=== PATIENT | female | born 1995 | race Caucasian/White ===

== ENCOUNTER → 2017-11-30 11:40 | Outpatient (CLI) | payer OTHER, SELFPAY ==
[2017-11-30 13:58] LABS: Alanine Aminotransferase 35 U/L (12-78); Albumin Level 4.1 gm/dL (3.4-5.0); Albumin/Globulin Ratio 1.3 (1.1-1.8); Alkaline Phosphatase 80 U/L (46-116); Anion Gap 13.3 mEq/L (5-15); Aspartate Amino Transferase 21 U/L (15-37); Bilirubin,Total 0.4 mg/dL (0.2-1.0); Blood Urea Nitrogen 17 mg/dL (7-18); Calcium 8.9 mg/dL (8.5-10.1); Carbon Dioxide 27 mmol/L (21.0-32.0); Chloride 106 mmol/L (98-107); Chol/HDL Ratio 3.4 (1-3.5); Cholesterol 214 mg/dL (140-200); Creatinine,Serum 0.73 mg/dL (0.55-1.02); Estimated Glomerular Filt Rate 99 ml/min (>60); GFR (African American) 120 ML/MIN (>60); Globulin 3.1 gm/dl (1.3-3.2); Glucose 89 mg/dL (74-106); HDL Cholesterol 63 mg/dL (29-89); LDL Cholesterol 140 mg/dL (0-130); Potassium 4.3 mmoL/L (3.5-5.1); Sodium 142 mmol/L (136-145); Total Protein,Serum 7.2 gm/dL (6.4-8.2); Triglycerides 57 mg/dL (30-200); VLDL Cholesterol 11 mg/dL (0-40)
== END ==
PROVIDERS: PCP Internal Medicine Adolescent Medicine; Visit Provider Internal Medicine Adolescent Medicine
DX: Z11.1 Encounter for screening for respiratory tuberculosis (principal); Z00.00 Encounter for general adult medical examination without abnormal findings
CPT/HCPCS: 36415; 80053; 80061; 86480

== ENCOUNTER 2018-10-19 19:46 | Outpatient (CLI) | payer OTHER, SELFPAY | END 2018-10-19 20:39 | disposition home or self-care (01) | LOC: OUTP 19:48 | PROVIDERS: PCP Internal Medicine Adolescent Medicine; Visit Provider Nurse Practitioner | DX: J06.9 Acute upper respiratory infection, unspecified (principal) ==

== ENCOUNTER → 2018-11-22 19:11 | Outpatient (CLI) | payer OTHER, SELFPAY ==
[2018-11-25 08:12] LABS: QuantiFERON-TB Gold Plus Negative (Negative)
== END ==
PROVIDERS: Visit Provider Nurse Practitioner Family
DX: Z11.1 Encounter for screening for respiratory tuberculosis (principal)
CPT/HCPCS: 36415; 86480

== ENCOUNTER → 2019-01-06 10:22 | Outpatient (CLI) | payer OTHER, SELFPAY ==
[2019-01-06 10:49] LABS: Hematocrit 42.8 % (37.0-47.0); Hemoglobin 14.3 g/dL (12.2-16.2); Lymphocytes % 22.4 % (10-50); Mean Corpuscular HGB Conc 33.5 g/dL (31.8-35.4); Mean Corpuscular Hemoglobin 32.1 pg (27.0-31.2); Mean Corpuscular Volume 95.6 fl (81-99); Mean Platelet Volume 8.3 fl (7.4-10.4); Monocytes % 5.3 % (1.7-9.3); Neutrophils % 71.5 % (37.0-80.0); Platelet Count 304 K/mm3 (142-424); Red Blood Count 4.47 M/mm3 (4.20-5.40); Red Cell Distribution Width 12.5 % (11.5-17.5); White Blood Count 7.8 K/mm3 (4.8-10.8)
[2019-01-06 10:50] LABS: Basophils % 0.5 % (0.1-2.0); Eosinophils % 0.2 % (0.1-12.0); Lymphocytes # 1.8 K/mm3 (0.7-4.5); Monocytes # 0.4 K/mm3 (0.1-1.0); Neutrophils # 5.6 K/mm3 (1.8-7.8)
[2019-01-08 10:14] LABS: HIV Screen 4th Generation wRfx Non Reactive (Non Reactive); Hepatitis B Surface Antigen Negative (Negative); Hepatitis C Antibody 0.2 s/co ratio (0.0-0.9); Rapid Plasma Reagin Ab Titer Non Reactive (NonRea<1:1)
[2019-01-08 10:15] LABS: Rubella Antibodies, IgG 4.74 index (Immune >0.99)
== END ==
PROVIDERS: Visit Provider Nurse Practitioner Obstetrics & Gynecology
DX: Z34.90 Encounter for supervision of normal pregnancy, unspecified, unspecified trimester (principal)
CPT/HCPCS: 36415; 85025; 86592; 86703; 86762; 86850; 87340; 87380; G0432

== ENCOUNTER → 2019-01-12 09:00 | Outpatient (CLI) | payer BC, SELFPAY ==
--- NOTE | 2019-01-12 09:02 | US_ITS ---
US OB transvaginal HISTORY: Early OB ultrasound ITS.REASON: US OB Dates ORDERING PHYSICIAN: Enio Malone MD PATIENT AGE: 23 years COMPARISON: None FINDINGS: An intrauterine gestational sac is present with a pole with a crown-rump length of 2.75cm correlating to gestational age of 9w4d. heart tones are present with an FHR of 186 bpm's. Yolk sac is noted. The amnion and chorion have not yet fused. Adnexa: There is a small left corpus luteum cyst at 14 mm. IMPRESSION: Live intrauterine gestation at 9 weeks 4 days as described above. Estimated due date by Ultrasound is 08/13/2019
== END ==
PROVIDERS: PCP Internal Medicine Adolescent Medicine; Visit Provider Nurse Practitioner Obstetrics & Gynecology
DX: O26.841 Uterine size-date discrepancy, first trimester (principal)
CPT/HCPCS: 76817

== ENCOUNTER → 2019-03-29 09:51 | Outpatient (CLI) | payer BC, SELFPAY ==
--- NOTE | 2019-03-29 09:53 | US_ITS ---
US OB /maternal detail: INDICATION: ITS.REASON: US OB Complete ORDERING PHYSICIAN: Enio Malone MD PATIENT AGE: 24 years TECHNIQUE: ultrasound transabdominal scanning. COMPARISON: No previous relevant studies. FINDINGS: Single viable intrauterine gestation. Breech position. Placenta: Posterior placenta grade 1. There is average amount fluid. The cervix appears satisfactory. Closed and measuring 3 cm in length. Complete survey performed and was unremarkable on the submitted images as in PACS. No discrete anomalies identified on survey imaging by technologist. Active fetus. Three-vessel cord with satisfactory umbilical cord insertion. 4- chamber heart noted. Survey of brain & ventricles unremarkable. Face and neck survey unremarkable. Diaphragm and chest views unremarkable. Abdomen: Both kidneys noted and unremarkable. Stomach noted and satisfactory. Spine: Survey of the spine satisfactory with no anomalies identified nor imaged. Both arms and legs noted. Amniotic Fluid: Adequate. Maternal adnexa: No significant findings. Measurements: Average ultrasound age 20w4d. Gestational Age 20w3d. Estimated due date by ultrasound age 1008/12/2019. Estimated weight 361 grams. BPD = 20w4d OFD = 21w4d HC = 20w3d AC = 21w0d FL = 20w1d Growth Percentile= 52% Heart Rate = 153 Cerebellum = 20w1d Humerus = 21w0d HC/AC is 1.14 (1.09-1.26). CI is 74% (70-86%). FL/BPD is 68%. FL/AC is 21%. IMPRESSION: There is a single live active fetus which is in cephalic presentation with an average ultrasound age of 20 weeks and 4 days. All parameters correlate with no obvious anomalies. Please see above for detail.
== END ==
PROVIDERS: PCP Internal Medicine Adolescent Medicine; Visit Provider Nurse Practitioner Obstetrics & Gynecology
DX: Z36.0 Encounter for antenatal screening for chromosomal anomalies (principal)
CPT/HCPCS: 76811

== ENCOUNTER → 2019-05-20 10:16 | Outpatient (CLI) | payer BC, SELFPAY ==
[2019-05-20 11:01] LABS: Glucose,Fasting 90 mg/dL (60-105)
[2019-05-20 12:45] LABS: Glucose 1 Hour 117 mg/dL (74-106)
== END ==
PROVIDERS: Visit Provider Nurse Practitioner Obstetrics & Gynecology
DX: Z34.90 Encounter for supervision of normal pregnancy, unspecified, unspecified trimester (principal)
CPT/HCPCS: 36415; 82951

== ENCOUNTER → 2019-07-11 17:08 | Outpatient (CLI) | payer BC, SELFPAY | PROVIDERS: Visit Provider Nurse Practitioner Obstetrics & Gynecology | DX: Z34.90 Encounter for supervision of normal pregnancy, unspecified, unspecified trimester (principal) | CPT/HCPCS: 86403 ==

== ENCOUNTER 2019-08-10 03:25 | Inpatient (IN) ==
[2019-08-10 05:10] LABS: Microscopic, Urine URINE MICROSCOPIC (MICROSCOPIC)
[2019-08-10 05:16] LABS: Basophils % 0.2 % (0.1-2.0); Eosinophils # 0.1 K/mm3 (0.0-0.4); Eosinophils % 0.8 % (0.1-12.0); Hematocrit 39.5 % (37.0-47.0); Hemoglobin 12.3 g/dL (12.2-16.2); Lymphocytes # 2.1 K/mm3 (0.7-4.5); Lymphocytes % 25.3 % (10-50); Mean Corpuscular HGB Conc 31.3 g/dL (31.8-35.4); Mean Corpuscular Volume 102.1 fl (81-99); Mean Platelet Volume 11.3 fl (7.4-10.4); Monocytes # 0.5 K/mm3 (0.1-1.0); Monocytes % 6.4 % (1.7-9.3); Neutrophils # 5.7 K/mm3 (1.8-7.8); Neutrophils % 67.3 % (37.0-80.0); Platelet Count 245 K/mm3 (142-424); Red Blood Count 3.86 M/mm3 (4.20-5.40); White Blood Count 8.4 K/mm3 (4.8-10.8)
[2019-08-10 05:31] LABS: Appearance,Urine CLEAR (Clear); Bilirubin,Urine Negative (Negative); Blood, Urine Negative (Negative); Color,Urine YELLOW (Yellow); Glucose,Urine (UA) Negative (Negative); Ketones,Urine Negative (Negative); Leukocyte Esterase,Urine 1+ (Negative); PH,Urine 6.5 (5.0-8.5); Protein,Urine Negative (Negative); Specific Gravity, Urine 1.025 (1.005-1.030); Urobilinogen,Urine 0.2 EU/dl (0.2)
[2019-08-10 05:36] LABS: Bacteria,Urine 2+ /lpf; Mucus,Urine 1+ /lpf
[2019-08-10 05:42] LABS: Amphetamine/Metha Screen,Urine Negative ng/mL (<1000); Barbiturates Screen,Urine Negative ng/mL (<200); Benzodiazepines Screen,Urine Negative ng/mL (<200); Cannabinoid Screen,Urine Negative ng/mL (<50); Cocaine Screen,Urine Negative ng/mL (<300); Methadone Screen,Urine Negative ng/mL (<300); Opiate Screen,Urine Negative ng/mL (<300); Phencyclidine Screen,Urine Negative ng/mL (<25)
--- NOTE | 2019-08-10 07:59 | Progress Note ---
Labor Note - Subjective: Date: 08/10/19 Time: 07:10 regular contraction - Objective: NST:: Reactive Contractions:: every 4-5 minutes Cervical Dilation:: 2-3 Effacement:: 75% Station: -1 Membranes: artificially ruptured Comment:: I ruptured her membranes and there was clear fluid. - Fetus: Monitoring?: Yes monitoring type:: Internal and External Comment:: I inserted an IUPC - Assessment: Labor progressing?: Yes Cephalopelvic disproportion?: No Patient Problems: All Active Problems (This Medical Record has been edited. Action required.) (Acute) Exposure to blood (Acute) - Plan: Anesthesia for epidural?: No Continue to labor down?: Yes Plan for ?: No Continue to monitor?: Yes Start pushing?: No
--- NOTE | 2019-08-10 08:01 | History & Physical Report ---
OB - H&P: HPI Antepartum - History of Present Illness Chief complaint: Term , History of present illness: She is a 24-year-old 1 para 0 at 39+ weeks gestational age. She complains of some pressure and the baby seems quite large. As result of that we have elected to deliver her at term. - History of Present Criteria for establishing EDC:: LMP confirmed by 1st trimester US care: good care Ultrasounds: normal 1st trimester US, normal mid trimester US Obstetrical complications: none Medical complications: none [facility] History I have reviewed the patient's past medical history: Yes Medical History: Denies:: Cancer, Diabetes Mellitus Type 1, Diabetes Mellitus Type 2, MRSA *Have you ever received a pneumonia vaccine?: No *Have you received a flu vaccine this season?: No Laterality Cases: Other Surgeries: Yes: No Previous Surgery. No: Amputation: No Fractures: No - *Social History Smoking Status: Never smoker Alcohol Intake: current Alcohol Intake Frequency:: holidays/special occasions only *Occupational Status:: employed Housing: house Household Members: spouse *Travel in the last 8 weeks: None Family Hx:: Hypertension, Heart Attack, Cancer, Kidney Disease Para: 0 Review of Systems - Review of Systems Review of systems:: pertinent systems reviewed and negative unless documented below Meds Home Medications Medication Instructions Recorded Confirmed Type 1 tab PO DAILY 02/03/19 08/08/19 History vitamin,calcium,xpcauqfu-drsa-ljlii acid tablet ferrous sulfate 325 mg (65 mg 325 mg PO DAILY #30 tab 04/05/19 08/08/19 Rx iron) tablet Allergies Allergy/AdvReac Type Severity Reaction Status Date / Time No Known Allergies Allergy Verified 08/08/19 13:40 OB - H&P: Exam - Physical Exam Vital signs: Temp Pulse Resp BP Pulse Ox 98.4 F 103 H 18 126/85 99 08/10/19 04:10 08/10/19 04:10 08/10/19 04:10 08/10/19 04:10 08/10/19 04:10 - Constitutional no acute distress - Routine HEENT Exam Head: Present: normocephalic Eye: Present: EOMI, PERRL ENT: Present: mucous membranes moist - Routine Neck Exam Present: supple, full ROM - Routine Respiratory Exam Absent: accessory muscle use (good air entry bilaterally), respiratory distress, wheezes, crackles - Routine Cardiovascular Exam Present: RRR. Absent: murmur - Routine Abdominal Exam Present: soft, normoactive bowel sounds. Absent: tenderness, distended, guarding - Routine Rectal Exam Patient deferred: visual exam, digital exam - Routine Exam Patient deferred: external exam, groin exam, perineal exam - Routine Extremities Exam Present: full ROM. Absent: cyanosis, edema - Routine Skin Exam Present: intact. Absent: cyanosis - Routine Neurological Exam Present: alert, oriented X3 - Routine Psychiatric Exam Present: normal affect OB - Results - Labs Labs: Short CBC 08/10/19 Range/Units 04:45 WBC 8.4 (4.8-10.8) K/mm3 Hgb 12.3 (12.2-16.2) g/dL Hct 39.5 (37.0-47.0) % Plt Count 245 (142-424) K/mm3 Urine 08/10/19 Range/Units 04:55 Urine Color Yellow (Yellow) Urine Appearance Clear (Clear) Urine pH 6.5 (5.0-8.5) Ur Specific [place] 1.025 (1.005-1.030) Urine Protein Negative (Negative) Urine Glucose (UA) Negative (Negative) OB - A/P Antepartum (1) Normal delivery at term Current visit: Yes Status: Acute - Additional Plan Planning to breastfeed?: Yes Plan: induction Additional Information:: She is 39 and 5 weeks gestational age and has what appears to be a slightly large baby. As result of that we have elected to deliver her at term. Her cervix is favorable.
--- NOTE | 2019-08-10 10:21 | Progress Note ---
Labor Note - Subjective: Date: 08/10/19 Time: 10:20 regular contraction - Objective: NST:: Reactive Contractions:: every 2-3 minutes Cervical Dilation:: 3-4 Effacement:: 90% Station: -1 Membranes: artificially ruptured - Fetus: Monitoring?: Yes monitoring type:: Internal and External - Assessment: Labor progressing?: Yes Cephalopelvic disproportion?: No Patient Problems: All Active Problems (This Medical Record has been edited. Action required.) Normal delivery at term (Acute) (Acute) Exposure to blood (Acute) - Plan: Anesthesia for epidural?: No Continue to labor down?: Yes Plan for ?: No Continue to monitor?: Yes Start pushing?: No
--- NOTE | 2019-08-10 13:39 | Progress Note ---
Labor Note - Subjective: Date: 08/10/19 Time: 13:37 regular contraction - Objective: NST:: Reactive Contractions:: every 2-3 minutes Cervical Dilation:: 4 Effacement:: 90% Station: -1 Membranes: artificially ruptured - Fetus: Monitoring?: Yes monitoring type:: Internal and External - Assessment: Labor progressing?: Yes Cephalopelvic disproportion?: No Patient Problems: All Active Problems (This Medical Record has been edited. Action required.) Normal delivery at term (Acute) (Acute) Exposure to blood (Acute) - Plan: Anesthesia for epidural?: Yes Continue to labor down?: Yes Plan for ?: No Continue to monitor?: Yes Start pushing?: No Comment:: There is some molding of the head. She is a good 4 cm and the cervix is thinned out significantly. The head is really not come down much. We will see how she does over the next few hours.
--- NOTE | 2019-08-10 15:50 | Progress Note ---
Labor Note - Subjective: Date: 08/10/19 Time: 15:50 regular contraction - Objective: NST:: Reactive Contractions:: every 2-3 minutes Cervical Dilation:: 6 Effacement:: 100% Station: -1 Membranes: artificially ruptured - Fetus: Monitoring?: Yes monitoring type:: Internal and External - Assessment: Labor progressing?: Yes Cephalopelvic disproportion?: No Patient Problems: All Active Problems (This Medical Record has been edited. Action required.) Normal delivery at term (Acute) (Acute) Exposure to blood (Acute) - Plan: Anesthesia for epidural?: Yes Continue to labor down?: Yes Plan for ?: No Continue to monitor?: Yes Start pushing?: No
--- NOTE | 2019-08-10 17:42 | Progress Note ---
Labor Note - Subjective: Date: 08/10/19 Time: 17:40 regular contraction - Objective: NST:: Reactive Contractions:: every 2-3 minutes Cervical Dilation:: 9-10 Effacement:: 100% Station: 0 Membranes: artificially ruptured - Fetus: Monitoring?: Yes monitoring type:: Internal and External - Assessment: Labor progressing?: Yes Cephalopelvic disproportion?: No Patient Problems: All Active Problems (This Medical Record has been edited. Action required.) Normal delivery at term (Acute) (Acute) Exposure to blood (Acute) - Plan: Anesthesia for epidural?: Yes Continue to labor down?: Yes Plan for ?: No Continue to monitor?: Yes Start pushing?: No Comment:: She does has an anterior lip and she feels a lot of pressure with each contraction. We will have her bear down with each contraction. Once she brings ahead and little further we will go ahead and start pushing.
--- NOTE | 2019-08-10 19:26 | Procedure Note ---
- Delivery Note Delivery Date:: 08/10/19 Delivery Time:: 19:03 Anesthesia Type: Epidural Was labor medically induced?: Yes Induction method: per pitocin protocol Gestational age (weeks): 39 Infant delivered prior to 39 weeks?: No Infant Gender: Male at 1 minute: 8 at 5 minutes: 9 LAC or MLE?: LAC Delivery Procedure:: She is a 24-year-old 1 para 0 who was 39 and 5 weeks gestational age. She had quite a large baby so we elected to deliver her at term. She was feeling quite a lot of pressure as well. She was started on IV oxytocin had her membranes ruptured. Under labor epidural she progressed to full dilation and delivered spontaneously a liveborn male child at 7:03 PM in the evening of August 10, 2019. On deliver the head the anterior shoulder then easily delivered followed by the rest of the infant's body atraumatically. We allowed the cord to continue to pulsate for 1 minute. The oropharynx and nasopharynx were bulb suction. The cord was then doubly clamped and cut. The infant was then placed on the mother's abdomen for further care. The nurses assigned Apgars of 8 at 1 minute and 9 at 5 minutes. We then obtained cord blood as well as cord pH. The pH was 7.32. Using gentle traction on the cord and countertraction on the fundus I was able to easily deliver the placenta intact. He had a normal three-vessel cord. She had bilateral labial tears along with a first-degree vaginal tear. These were repaired with interrupted 3-0 Vicryl Rapide suture. She has O+ blood, she is rubella immune and was group A streptococcus negative. She plans to breast-feed. Her welder operator is Dr. Emerson. Estimated blood loss was approximately 500 cc. Laceration:: vaginal, labial Placental Delivery Description: Spontaneous
[2019-08-11 07:46] LABS: Hematocrit 33.3 % (37.0-47.0); Hemoglobin 10.5 g/dL (12.2-16.2)
--- NOTE | 2019-08-11 09:28 | Progress Note ---
Internal Medicine - PN: Subj *Date: 08/11/19 *Time: 09:27 Interval history: She continues to do well. She is eating and drinking and ambulating. She is feeding. Her lochia is normal. Her hemoglobin is stable. Exam Vital signs and Labs for Last 24 Hours: Temp Pulse Resp BP Pulse Ox 98.0 F 83 16 106/60 L 97 08/11/19 04:00 08/11/19 04:00 08/11/19 04:00 08/11/19 04:00 08/11/19 04:00 Laboratory Results - last 24 hr 08/10/19 19:18: Cord ABG pH 7.32 L 08/11/19 06:26: Hgb 10.5 L, Hct 33.3 L I & O for Last 24 hours: Intake & Output 08/08/19 08/09/19 08/10/19 08/11/19 11:59 11:59 11:59 11:59 Output Total 1000 / 1000 Balance -1000 / -1000 Weight 225 lb Microbiology Reports for the Last 24 Hours: Microbiology 08/10/19 04:55 Urine,Clean Catch Urine Culture - Preliminary - Constitutional no acute distress Assessment and Plan (1) Normal delivery at term Current visit: Yes Status: Acute Category: Medical Code(s): O80 - Encounter for full-term uncomplicated delivery - Assessment and plan all Dx Assessment and Plan for all problems:: She continues to do very well. We will see her back again in the morning. We will plan to send her home tomorrow.
--- NOTE | 2019-08-11 09:32 | Discharge Summary ---
General - General Admission date:: 08/10/19 Discharge date: 08/12/19 HPI HPI: She is a 24-year-old 1 now para 1 who was 39+5 weeks gestational age. She had a large baby and as result of that we elected to induce her labor at term. Hospital Course Hospital Course: She was started on IV oxytocin had her membranes ruptured. Under labor epidural she progressed to full dilation and delivered spontaneously a liveborn male child at 7:03 PM in the evening of August 10, 2019. Baby was a liveborn male child weighing 9 pounds 0 ounces and had Apgars of 8 at 1 minute and 9 at 5 minutes. pH was 7.32. She has done well and has remained afebrile with her hospitalization. She is eating and drinking and ambulating. She is breast-feeding. Her lochia is normal. She has O+ blood, she is rubella immune and was group B streptococcus negative. Her vial gauger is Dr. Emerson. She is discharged home to follow-up with me in approximately 2 weeks time. She will continue with her vitamins and iron. She will take pvsi-rqr-liheimx analgesics as needed for pain. Objective Vital signs: Temp Pulse Resp BP Pulse Ox 98.0 F 83 16 106/60 L 97 08/11/19 04:00 08/11/19 04:00 08/11/19 04:00 08/11/19 04:00 08/11/19 04:00 no acute distress Results Labs on day of discharge: Labs from last 24 hours 08/11/19 08/10/19 06:26 19:18 Hgb 10.5 L Hct 33.3 L Cord ABG pH 7.32 L Preliminary micro results at discharge 08/10/19 04:55 Urine Culture - Preliminary Urine,Clean Catch DS: Diagnosis - Discharge Diagnosis (1) Normal delivery at term Status: Acute Discharge Plan - Patient Discharge Instructions ACTIVITY: No heavy lifting DIET: continue same diet - Follow up Plan Disposition: Home, Self-Senior Living Medications: Home Medications Medication Instructions Recorded Confirmed Type 1 tab PO DAILY 02/03/19 08/10/19 History vitamin,calcium,xrgkhhpl-ljip-nzfft acid tablet Ferrous Sulfate 325 mg PO DAILY 08/10/19 08/10/19 History Prescriptions/Medication Reconciliation: Continued vitamin,calcium,mjemzdwy-ugxw-hmtch acid tablet 1 tab PO DAILY Ferrous Sulfate 325 mg PO DAILY - Problem Reconciliation Problems Reviewed?: Yes
[2019-08-12 07:57] VITALS: BP 124/76
--- NOTE | 2019-08-12 10:36 | Progress Note ---
Internal Medicine - PN: Subj *Date: 08/12/19 *Time: 10:32 Interval history: PPD #2 No new complaints Tolerating regular diet, ambulating and voiding Discharge planned for today Exam Vital signs and Labs for Last 24 Hours: Temp Pulse Resp BP Pulse Ox 98.2 F 79 20 124/76 97 08/12/19 07:56 08/12/19 07:56 08/12/19 07:56 08/12/19 07:56 08/12/19 07:56 I & O for Last 24 hours: Intake & Output 08/09/19 08/10/19 08/11/19 08/12/19 11:59 11:59 11:59 11:59 Output Total 1000 / 1000 Balance -1000 / -1000 Weight 225 lb Microbiology Reports for the Last 24 Hours: Microbiology 08/10/19 04:55 Urine,Clean Catch Urine Culture - Final Multiple organisms, suggests contamination. Narrative: CONSTITUTIONAL: no acute distress HEENT: mucous membranes moist PULMONARY: breathing unlabored without audible wheezes CV: no tachycardia or visible JVD; normal LE peripheral pulses ABD: soft, NT/ND, no guarding : fundus firm at/below umbilicus SKIN: no visible rash or lesions EXT: 1+ edema LEs NEURO: alert/oriented, no altered mental status PSYCH: appropriate mood and demeanor without visible anxiety/depression Assessment and Plan (1) Normal delivery at term Current visit: Yes Status: Acute Category: Medical Code(s): O80 - Encounter for full-term uncomplicated delivery - Assessment and plan all Dx Assessment and Plan for all problems:: Discharge home per previous plan of Dr. Malone F/U 2 wk visit
--- OUTSIDE RECORDS SUMMARY | 2019-08-23 11:16 | External Medical Summary | Continuity of Care Document ---
:1995 Author Organization [facility] Address [address] [address] [place] [address] Phone Care Team Providers Name Role Phone Faisal Attending Provider Ava Primary Care Provider Allergies, Adverse Reactions, Alerts No known allergies. Medications Medication Status Dose Units Route Sig Qty Days Start Date End Date Instructions Vit Active 1 TAB Oral Daily February 03 Calc,Iron,Foli 2018 c 10:00am Ferrous Active 325 MG Oral Daily August 8:46am Problems Active Problems Medical Problem Onset Date Status Exposure to blood Active Normal delivery at term Active Active Procedures Procedure Date Performed Status Group B Streptococcus Screen (ADRIENNE) July 11, 2019 compl eted Relevant Diagnostic Tests and/or Laboratory Data Laboratory Results Test Date/Time Result Interpretation Reference Result Perfo rming Range Comment Site Urine Color May 252018 11:32am Urine Color June 092018 11:43am Urine Color June 3:21pm Urine Color July 9:20am Urine Color July 2:50pm Urine Color July 3:21pm Urine Color July 12:09pm Urine Color August 11:06am Urine Color August 1:32pm Urine May 25 Clear Appearance 2018 11:32am Urine June 09 Clear Appearance 2018 11:43am Urine June Clear Appearance 2018 3:21pm Urine Annamarie Clear Appearance 2018 9:20am Urine Annamarie Clear Appearance 2018 2:50pm Urine Annamarie Clear Appearance 2018 3:21pm Urine Annamarie Clear Appearance 2018 12:09pm Urine October Clear Appearance 2018 11:06am Urine October Clear Appearance 2018 1:32pm Urine Glucose May 25, Negative (UA) 2018 11:32am Urine Glucose June 09, Negative (UA) 2018 11:43am Urine Glucose June Negative (UA) 2018 3:21pm Urine Glucose Annamarie Negative (UA) 2018 9:20am Urine Glucose Annamarie Negative (UA) 2018 2:50pm Urine Glucose Annamarie Negative (UA) 2018 3:21pm Urine Glucose Annamarie Negative (UA) 2018 12:09pm Urine Glucose October Negative (UA) 2018 11:06am Urine Glucose October Negative (UA) 2018 1:32pm Urine May 25, negative Bilirubin 2018 11:32am Urine June 09, negative Bilirubin 2018 11:43am Urine June negative Bilirubin 2018 3:21pm Urine Annamarie negative Bilirubin 2018 9:20am Urine Annamarie negative Bilirubin 2018 2:50pm Urine Annamarie negative Bilirubin 2018 3:21pm Urine Annamarie negative Bilirubin 2018 12:09pm Urine October negative Bilirubin 2018 11:06am Urine October negative Bilirubin 2018 1:32pm Urine Ketones May 25, Negative mg/dL 2018 11:32am Urine Ketones June 09, Negative mg/dL 2018 11:43am Urine Ketones June Negative mg/dL 2018 3:21pm Urine Ketones Annamarie Negative mg/dL 2018 9:20am Urine Ketones Annamarie Negative mg/dL 2018 2:50pm Urine Ketones Annamarie Small 15 mg/dL 2018 3:21pm Urine Ketones Annamarie Negative mg/dL 2018 12:09pm Urine Ketones October Negative mg/dL 2018 11:06am Urine Ketones October Negative mg/dL 2018 1:32pm Urine Specific May 25, 1.015 [place] 2018 11:32am Urine Protein June 09, 2018 11:43am Urine Protein June Negative 2018 3:21pm Urine Protein Annamarie Negative 2018 9:20am Urine Protein Annamarie Trace 2018 2:50pm Urine Protein July Negative 2018 3:21pm Urine Protein Annamarie Negative 2018 12:09pm Urine Protein August Negative 2018 11:06am Urine Protein August Negative 2018 1:32pm Urine Blood May 25, negative 2018 11:32am Urine pH June 8th, 8.5 2018 11:43am Urine pH [place] 7.0 2018 3:21pm Urine pH Annamarie 6.0 2018 9:20am Urine pH Annamarie 7.0 2018 2:50pm Urine pH Annamarie 7.0 2018 3:21pm Urine pH Annamarie 6.5 2018 12:09pm Urine pH October 5.5 2018 11:06am Urine pH October 6.0 2018 1:32pm Urine pH May 25, 7.0 2018 11:32am Urine Blood June 09, negative 2018 11:43am Urine Blood June negative 2018 3:21pm Urine Blood July negative 2018 9:20am Urine Blood July negative 2018 2:50pm Urine Blood Annamarie nonhemolyzed 2018 trace 3:21pm Urine Blood Annamarie negative 2018 12:09pm Urine Blood October negative 2018 11:06am Urine Blood October negative 2018 1:32pm Urine Protein May 25, 2018 11:32am Urine Specific June 09, 1.015 [place] 2018 11:43am Urine Specific [place] 1.015 [place] 2018 3:21pm Urine Specific Annamarie 1.025 [place] 2018 9:20am Urine Specific Annamarie 1.020 [place] 2018 2:50pm Urine Specific Annamarie 1.020 [place] 2018 3:21pm Urine Specific Annamarie 1.015 [place] 2018 12:09pm Urine Specific October 1.005 [place] 2018 11:06am Urine Specific October 1.010 [place] 2018 1:32pm Urine May 25, 0.2 Urobilinogen 2019 Dipstick 11:32am Urine June 09, 0.2 Urobilinogen 2019 Dipstick 11:43am Urine [place] 0.2 Urobilinogen 2018 Dipstick 3:21pm Urine Annamarie 0.2 Urobilinogen 2018 Dipstick 9:20am Urine Annamarie 0.2 Urobilinogen 2018 Dipstick 2:50pm Urine Annamarie 0.2 Urobilinogen 2018 Dipstick 3:21pm Urine Annamarie 0.2 Urobilinogen 2018 Dipstick 12:09pm Urine October 0.2 Urobilinogen 2018 Dipstick 11:06am Urine October 0.2 Urobilinogen 2018 Dipstick 1:32pm Urine Nitrate May 252018 11:32am Urine Nitrate June 092018 11:43am Urine Nitrate June Negative 2018 3:21pm Urine Nitrate July Negative 2018 9:20am Urine Nitrate Annamarie Negative 2018 2:50pm Urine Nitrate July Negative 2018 3:21pm Urine Nitrate Annamarie Negative 2018 12:09pm Urine Nitrate August Negative 2018 11:06am Urine Nitrate October Negative 2018 1:32pm Urine May 25, Trace Leukocyte 2018 Esterase 11:32am Urine June 09, Small Leukocyte 2018 Esterase 11:43am Urine June Small Leukocyte 2018 Esterase 3:21pm Urine July Trace Leukocyte 2018 Esterase 9:20am Urine Annamarie Trace Leukocyte 2018 Esterase 2:50pm Urine Annamarie Negative Leukocyte 2018 Esterase 3:21pm Urine Annamarie Trace Leukocyte 2018 Esterase 12:09pm Urine October Trace Leukocyte 2018 Esterase 11:06am Urine October Small Leukocyte 2018 Esterase 1:32pm Microbiology Results Procedure Source Result Collection Result Result Performin g Date/Time Date/Time Comment Site Group B Vaginal Negative for July [facility], [address] Streptococcus Group B 2018 Screen (ADRIENNE) Streptococcu 2:49pm 9:33[place] [address] s. Advance Directives Advance Directive Response Recorded Date/Time Does the patient have an advanced directive on No August 08, 2019 1:56pm file? Living Will No August 08, 2019 1: 56pm Does the patient have an advanced directive on No July 11, 2019 3:30pm file? Living Will No July 11, 2019 3:30pm Does the patient have an advanced directive on No July 08, 2019 9:39am file? Living Will July 08, 2019 9:39am Does the patient have an advanced directive on No July 20, 2019 3:47pm file? Living Will No July 20, 2019 3:47pm Does the patient have an advanced directive on No June 21, 2019 3:38pm file? Living Will No June 21, 2019 3: 38pm Chief Complaint and Reason for Visit Chief Complaint LABWORK Induction Reason for Visit Normal delivery at term Encounters Encounter Location(s) Arrival/Admit Date Discharge/Depart Date Provider(s) Departed [facility] Physician May 25, 2019 May 25, 2019 Enio del toro , [facility] 11:25am 12:03pm [facility] Visit Departed [facility] Physician June 09, 2019 June 09, 2019 Enio [facility] 10:47am 11:54am [facility] Visit Departed [facility] Physician June 21, 2019 June 21, 2019 Keagan [facility] 2:50pm 3:32pm [facility] F[facility]al Visit Departed [facility] Physician July 08, July 08, 2019 Enio [facility] 2018 8:56am 9:31am [facility] Visit Departed [facility] Physician July 11, July 11, 2019 Enio [facility] 2018 2:20pm 3:31pm [facility] Visit Registered [facility] Physician July 11, Enio [facility] 2018 5:08pm MD Off to [facility] Departed [facility] Physician July 20, July 20, 2019 Charles silas [facility] 2018 2:47pm 3:47pm [facility] Visit Departed [facility] Physician July 28, July 28, 2019 Baig [facility] 2018 11:26am 12:12pm [facility] Visit Departed [facility] Physician August 02, 2019 August 02, 2019 Keagan [facility] 10:58am 11:25am [facility] Visit Departed [facility] Physician August 08, 2019 August 08, 2019 Keagan [facility] 1:03pm 1:58pm [facility] Visit Registered [facility] Physician August 10, 2019 Enio maguire , [facility] 4:03am MD Sam [facility] Registered [facility] Physician August 19, 2019 Enio del toro , Inpatient Group- 10:34am Recent Diagnosis Onset Date Normal delivery at term Assessments Diagnosis Onset Date Resolution Status Normal delivery at term acute Functional Status Observation Response Date Recorded Functional status ambulatory August 08, 2019 1: 56pm Functional status ambulatory August 02, 2019 11 :27am Functional status ambulatory July 28, 2019 12:15pm Functional status ambulatory July 11, 2019 3:30pm Functional status ambulatory July 08, 2019 9:39am Functional status ambulatory July 20, 2019 3:47pm Functional status ambulatory June 21, 2019 3: 38pm Functional status ambulatory June 09, 2019 11: 45am Functional status ambulatory May 25, 2019 1:44 pm Goals Acute Goals Nursing Diagnosis: Knowledge Deficit D isease/Condition Goal(s): Education of di sease process Instruction(s): Follow provider p mary/instructions (See attached discharge education) Follow/up with primary care provider as instructed in discharge packet Mental Status No Mental Status Information Available Medical Equipment No Medical Equipment Information available Insurance Providers Guarantor Vickie Treviño Address [address] [place] [address] Contact Info. Home Phone: Payer Policy Id Coverage Id Subscriber's Subscriber Id Effective E xpiration Name Date Date Fronton [id number] [address] [id number] Access Fronton [id number] [address] [address] Self Pay Self N/A Plan of Treatment She continues to do well. We will plan to deliver her later this week. She is 39+ weeks. She is doing well. Her cervix has slightly changed. We will see her back again next week. We will see her back again next week. She continues to do well. We did group B strep today. We will see her back again next week. She continues to do well. We will see her back again in a week. She is doing well. She has an occasional contraction. We will see her back in a week. She continues to do very well. The fetus measures up with her dates. Baby is active. We will see her back again in 2 weeks. She is doing very well. We will see her back in a couple of weeks. She is doing very well. We will see her back in 2 weeks. Future Tests Future scheduled test information is unavailable Pending Tests Pending diagnostic test information is unavailable Future Visits Future appointment information is unavailable Referrals to Other Providers Reason for Referral Start Provider Provider Contact Provider Address Referral Date Information Referral to [facility] August [address] [facility] Future Procedures Future procedure information is unavailable Future Medications Future medication information is unavailable Patient Instructions Diet Diet Diet Diet Depression Hemorrhage DI for Depression [facility] Post Discharge Instructions Social History Assigned Sex Female Vital Signs Vital Reading Result Reference Range Collection Date/ Time Height 172.72 cm May 25, 2019 11:40am Weight 91.79 kg May 25, 2019 11:40am Heart Rate 74 /min 60-90 May 25, 2019 11:40am BP Systolic 118 mm[Hg] 110-140 May 25, 2019 11:40am BP Diastolic 60 mm[Hg] 60-90 May 25, 2019 11:40am BMI (Body Mass Index) 30.7 kg/m2 May 25, 2019 11:40am Height 172.72 cm June 09, 2019 11:31am Weight 93.44 kg June 09, 2019 11:31am BP Systolic 128 mm[Hg] 110-140 June 09, 2019 11:31am BP Diastolic 62 mm[Hg] 60-90 June 09, 2019 11:31am BMI (Body Mass Index) 31.3 kg/m2 June 11:31am Height 172.72 cm June 21 9 3:09pm Weight 95.70 kg June 21 9 3:09pm BP Systolic 130 mm[Hg] 110-140 June 21 9 3:09pm BP Diastolic 80 mm[Hg] 60-90 June 21 9 3:09pm BMI (Body Mass Index) 32.1 kg/m2 June 3:09pm Height 172.72 cm July 08 019 8:59am Weight 97.12 kg July 08 019 8:59am BP Systolic 122 mm[Hg] 110-140 July 08 019 8:59am BP Diastolic 82 mm[Hg] 60-90 July 08 019 8:59am BMI (Body Mass Index) 32.5 kg/m2 July 08, 2019 8:59am Height 172.72 cm July 11 019 2:52pm Height 172.72 cm July 20, 2019 3:23pm Weight 98.88 kg July 20, 2019 3:23pm BP Systolic 130 mm[Hg] 110-140 July 20, 2019 3:23pm BP Diastolic 80 mm[Hg] 60-90 July 20, 2019 3:23pm BMI (Body Mass Index) 33.1 kg/m2 July 20, 2019 3:23pm Height 172.72 cm July 28, 2019 11:46am Weight 99.33 kg July 28, 2019 11:46am BP Systolic 110 mm[Hg] 110-140 July 28, 2019 11:46am BP Diastolic 72 mm[Hg] 60-90 July 28, 2019 11:46am BMI (Body Mass Index) 33.3 kg/m2 July 28, 2019 11:46am Height 172.72 cm August 02 201 9 11:14am Weight 101.37 kg August 02 11:14am Body Temperature 98 [degF] 97.6-99.6 August 02 11:14am BP Systolic 134 mm[Hg] 110-140 August 02 201 9 11:14am BP Diastolic 72 mm[Hg] 60-90 August 02 9 11:14am BMI (Body Mass Index) 34.0 kg/m2 August 11:14am Height 172.72 cm August 08 201 9 1:39pm Weight 102.28 kg August 08 9 1:39pm BP Systolic 122 mm[Hg] 110-140 August 08 9 1:39pm BP Diastolic 80 mm[Hg] 60-90 August 08 9 1:39pm BMI (Body Mass Index) 34.2 kg/m2 August 1:39pm Height 172.72 cm August 10 9 4:10am Weight 102.05 kg August 10 4:10am Body Temperature 98.2 [degF] 97.6-99.6 August 12, 019 7:56am Heart Rate 79 /min -August 12 7:56am Respiratory rate 20 /min -August 12, 2 019 7:56am Oxygen saturation by Pulse 97 % 95-100 2018 7:56am oximetry BP Systolic 124 mm[Hg] 110-140 August 12 7:56am BP Diastolic 76 mm[Hg] 60-90 August 12 7:56am BMI (Body Mass Index) 34.2 kg/m2 August 4:10am
== END 2019-08-12 12:32 | disposition home or self-care (01) | DRG 807 ==
LOC: OB 04:03
PROVIDERS: ADMIT Nurse Practitioner Obstetrics & Gynecology; ATTEND Nurse Practitioner Obstetrics & Gynecology
CPT/HCPCS: 59025; 80305; 81001; 82800; 85014; 85018; 85025; 86850; 87086; C1758; J0595

== ENCOUNTER → 2020-08-22 10:27 | Outpatient (CLI) | payer BC, SELFPAY ==
[2020-08-22 10:58] LABS: Basophils % 0.6 % (0.1-2.0); Eosinophils % 0.6 % (0.1-12.0); Hematocrit 47.9 % (37.0-47.0); Hemoglobin 14.9 g/dL (12.2-16.2); Lymphocytes # 2.4 K/mm3 (0.7-4.5); Lymphocytes % 38.8 % (10-50); Mean Corpuscular HGB Conc 31.2 g/dL (31.8-35.4); Mean Corpuscular Hemoglobin 30.9 pg (27.0-31.2); Mean Platelet Volume 8.1 fl (7.4-10.4); Monocytes # 0.3 K/mm3 (0.1-1.0); Monocytes % 5.3 % (1.7-9.3); Neutrophils # 3.4 K/mm3 (1.8-7.8); Neutrophils % 54.7 % (37.0-80.0); Platelet Count 340 K/mm3 (142-424); Red Blood Count 4.83 M/mm3 (4.20-5.40); Red Cell Distribution Width 12.4 % (11.5-17.5); White Blood Count 6.3 K/mm3 (4.8-10.8)
[2020-08-23 11:13] LABS: HIV Screen 4th Generation wRfx Non Reactive (Non Reactive); Hepatitis B Surface Antigen Negative (Negative); Hepatitis C Antibody <0.1 s/co ratio (0.0-0.9); Rubella Antibodies, IgG 5.82 index (Immune >0.99)
[2020-08-23 12:16] LABS: Rapid Plasma Reagin Ab Titer Non Reactive (NonRea<1:1)
== END ==
PROVIDERS: Visit Provider Nurse Practitioner Obstetrics & Gynecology
DX: Z34.90 Encounter for supervision of normal pregnancy, unspecified, unspecified trimester (principal)
CPT/HCPCS: 85025; 86592; 86703; 86762; 86850; 87340; 87380; G0432

== ENCOUNTER → 2020-08-28 12:50 | Outpatient (CLI) | payer BC, SELFPAY ==
--- NOTE | 2020-08-28 12:55 | US_ITS ---
PROCEDURE: US OB TRANSVAGINAL CLINICAL INDICATION: Confirm viability-spotting in early COMPARISON: US OBFEMAT US OB /maternal detail from 03/29/2019 FINDINGS: An intrauterine gestational sac is present with a pole with a crown-rump length of 0.33cm correlating to gestational age of 6weeks. heart tones are present with an FHR of . Yolk sac is noted. Heart tones are not identified on today's exam. May be too early to see heart tones. Follow-up is suggested. Unremarkable adnexa. IMPRESSION: There is an intrauterine gestation present with a crown-rump length 3.3 mm correlating to gestational age of 6 weeks 0 days. Heart tones however are not identified. Cannot confirm viability. Recommend follow-up exam in 1 week as well as correlation beta HCG. Dictated by: Anil Isaac MD 08/28/2020 17:18 Anil Isaac MD in [facility] 08/28/2020 17:18
== END ==
PROVIDERS: PCP Internal Medicine Adolescent Medicine; Visit Provider Nurse Practitioner Obstetrics & Gynecology
DX: O26.859 Spotting complicating pregnancy, unspecified trimester (principal)
CPT/HCPCS: 76817

== ENCOUNTER → 2020-08-28 13:28 | Outpatient (CLI) | payer BC, SELFPAY ==
[2020-08-28 15:12] LABS: HCG,Quantitative 17356 mIU/ml (0-5.42)
== END ==
PROVIDERS: Visit Provider Nurse Practitioner Obstetrics & Gynecology
DX: O20.9 Hemorrhage in early pregnancy, unspecified (principal); Z34.90 Encounter for supervision of normal pregnancy, unspecified, unspecified trimester
CPT/HCPCS: 36415; 84702

== ENCOUNTER → 2020-08-30 13:51 | Outpatient (CLI) | payer BC, SELFPAY ==
[2020-08-30 15:41] LABS: HCG,Quantitative 15083 mIU/ml (0-5.42)
== END ==
PROVIDERS: Visit Provider Nurse Practitioner Obstetrics & Gynecology
DX: Z34.90 Encounter for supervision of normal pregnancy, unspecified, unspecified trimester (principal)
CPT/HCPCS: 36415; 84702

== ENCOUNTER → 2020-12-20 19:57 | Outpatient (CLI) | payer BC, SELFPAY | PROVIDERS: PCP Internal Medicine Adolescent Medicine; Visit Provider Nurse Practitioner Family | DX: Z20.822 Contact with and (suspected) exposure to COVID-19 (principal) | CPT/HCPCS: U0003 ==

== ENCOUNTER → 2021-05-28 17:02 | Outpatient (CLI) | payer BC, SELFPAY ==
[2021-05-28 18:05] LABS: Basophils % 0.4 % (0.1-2.0); Eosinophils # 0.1 K/mm3 (0.0-0.4); Eosinophils % 0.6 % (0.1-12.0); Hemoglobin 13.6 g/dL (12.2-16.2); Lymphocytes # 2.8 K/mm3 (0.7-4.5); Lymphocytes % 29.3 % (10-50); Mean Corpuscular HGB Conc 33.1 g/dL (31.8-35.4); Mean Corpuscular Hemoglobin 30.9 pg (27.0-31.2); Mean Corpuscular Volume 93.3 fl (81-99); Mean Platelet Volume 8.9 fl (7.4-10.4); Monocytes # 0.6 K/mm3 (0.1-1.0); Monocytes % 6.2 % (1.7-9.3); Neutrophils % 63.5 % (37.0-80.0); Platelet Count 303 K/mm3 (142-424); Red Blood Count 4.39 M/mm3 (4.20-5.40); Red Cell Distribution Width 12.9 % (11.5-17.5); White Blood Count 9.5 K/mm3 (4.8-10.8)
[2021-05-30 04:03] LABS: HIV Screen 4th Generation wRfx Non Reactive (Non Reactive)
[2021-05-30 08:34] LABS: HSV 1 IgG, Type Spec 1.26 index (0.00-0.90); HSV 2 IgG, Type Spec <0.91 index (0.00-0.90); Rubella Antibodies, IgG 6.84 index (Immune >0.99)
[2021-05-30 09:39] LABS: Hepatitis B Surface Antigen Negative (Negative); Hepatitis C Antibody <0.1 s/co ratio (0.0-0.9)
[2021-05-30 13:44] LABS: Rapid Plasma Reagin Ab Titer Non Reactive (NonRea<1:1)
== END ==
PROVIDERS: Visit Provider Nurse Practitioner Obstetrics & Gynecology
DX: Z34.90 Encounter for supervision of normal pregnancy, unspecified, unspecified trimester (principal)
CPT/HCPCS: 85025; 86592; 86695; 86703; 86762; 86790; 86850; 87340; 87380; G0432

== ENCOUNTER → 2021-06-06 08:09 | Outpatient (CLI) | payer BC, SELFPAY ==
--- NOTE | 2021-06-06 08:09 | US_ITS ---
PROCEDURE: US OB <= 14 WEEKS FETUS CLINICAL INDICATION: for dates Ob ultrasound for dates COMPARISON: US US OB TRANSVAGINAL from 08/28/2020 FINDINGS: An intrauterine gestational sac is present with a pole with a crown-rump length of 1.98cm correlating to gestational age of 8weeks 4days. heart tones are present with an FHR of 160bpm. Yolk sac is noted. Small right corpus luteum at 8 mm IMPRESSION: Live IUP at 8 weeks 4 days. Estimated due date by Ultrasound is 01/12/2022 Dictated by: Anil Isaac MD 06/06/2021 13:58 Anil Isaac MD in [facility] 06/06/2021 13:58
== END ==
PROVIDERS: PCP Internal Medicine Adolescent Medicine; Visit Provider Nurse Practitioner Obstetrics & Gynecology
DX: Z34.90 Encounter for supervision of normal pregnancy, unspecified, unspecified trimester (principal)
CPT/HCPCS: 76801

== ENCOUNTER → 2021-08-26 12:43 | Outpatient (CLI) | payer BC, SELFPAY ==
--- NOTE | 2021-08-26 12:43 | US_ITS ---
PROCEDURE INFORMATION: Exam: US After First Trimester, Transabdominal Exam date and time: 08/26/2021 12:43 PM Age: 26 years old Clinical indication: Screening exam; Routine US, uterus; Patient HX: Anatomy ultrasound; Additional info: US ob complete-20wk anatomy scan TECHNIQUE: Imaging protocol: Real-time transabdominal obstetrical ultrasound of the maternal pelvis and a second or third trimester with image documentation. COMPARISON: US OB <= 14 WEEKS FETUS 06/06/2021 8:18 AM FINDINGS: Gestation: Single intrauterine heart rate: Heart rate 147 bpm presentation: Cephalic presentation Placenta: Anterior placenta grade 1 Amniotic fluid: Amniotic fluid is normal for gestational age. ANATOMY: midline falx: Normal falx cerebellum: Normal cerebellum. lateral ventricles: Normal cisterna magna: Normal cisterna magna nuchal fold: Nuchal fold 1.79 mm. Normal nuchal fold heart four-chamber view, heart size and position: Normal four-chamber heart. Normal right ventricular and left ventricular outflow tract diaphragm: Normal diaphragm kidneys: Normal kidneys stomach: Normal stomach urinary bladder: Normal bladder spine: Normal spine Umbilical cord insertion site into the abdomen: Normal cord insertion Umbilical cord vessel number: Normal 3 vessel cord arms and hands: Normal legs and feet: Normal BIOMETRY: Estimated due date (AUA): CHARLIE January 10.. Gestational age (AUA): Gestational age by ultrasound 20 weeks 3 days.. Estimated weight: Estimated weight 356 g 64 percentile.. Estimated weight percentile: Not calculated Biparietal diameter: BPD 20 weeks 4 days 64% Head circumference: Head circumference 19 weeks 6 days 27% Abdominal circumference: Abdominal circumference 20 weeks 4 days 55% Femur length: Femur length 20 weeks 5 days 60% MATERNAL: Uterus: Unremarkable. Cervix: Cervix measures 4.5 cm Right adnexa: Ovary is obscured by overlying bowel gas. Left adnexa: Ovary is obscured by overlying bowel gas. IMPRESSION: 1. Gestational age by ultrasound 20 weeks 3 days.. 2. CHARLIE January 10.. 3. Estimated weight 356 g 64 percentile..
== END ==
PROVIDERS: PCP Internal Medicine Adolescent Medicine; Visit Provider Nurse Practitioner Obstetrics & Gynecology
DX: Z36.0 Encounter for antenatal screening for chromosomal anomalies (principal)
CPT/HCPCS: 76811

== ENCOUNTER → 2021-10-14 09:19 | Outpatient (CLI) | payer BC, SELFPAY ==
[2021-10-14 10:04] LABS: Glucose,Fasting 101 mg/dl (74-100)
[2021-10-14 12:07] LABS: Glucose 1 Hour 123 mg/dL (74-100)
== END ==
PROVIDERS: Visit Provider Nurse Practitioner Obstetrics & Gynecology
DX: Z34.90 Encounter for supervision of normal pregnancy, unspecified, unspecified trimester (principal)
CPT/HCPCS: 36415; 82951

== ENCOUNTER → 2021-11-13 18:57 | Outpatient (CLI) | payer BC, SELFPAY ==
--- NOTE | 2021-11-13 19:14 | ECG_ITS ---
APPROVED REPORT Exam: Resting ECG HR:93 bpm ECG Measurements Heart Rate 93 AXES GA 156 P 65 QRSd 76 QRS 83 QT 356 T 28 QTc 442 Conclusion Normal sinus rhythm with sinus arrhythmia Normal ECG Electronically signed by : Mo Escalante MD 11/14/2021 13:43:57
== END ==
PROVIDERS: PCP Internal Medicine Adolescent Medicine; Visit Provider Nurse Practitioner Obstetrics & Gynecology
DX: Z34.90 Encounter for supervision of normal pregnancy, unspecified, unspecified trimester (principal); R00.0 Tachycardia, unspecified
CPT/HCPCS: 93005

== ENCOUNTER → 2021-11-21 11:07 | Outpatient (CLI) | payer BC, SELFPAY ==
[2021-11-21 11:23] LABS: Basophils # 0.1 K/mm3 (0-0.2); Basophils % 1.2 % (0.1-2.0); Eosinophils % 0.5 % (0.1-12.0); Hematocrit 42.3 % (37.0-47.0); Hemoglobin 13.4 g/dL (12.2-16.2); Lymphocytes # 1.5 K/mm3 (0.7-4.5); Lymphocytes % 17.6 % (10-50); Mean Corpuscular HGB Conc 31.6 g/dL (31.8-35.4); Mean Corpuscular Hemoglobin 31.9 pg (27.0-31.2); Mean Corpuscular Volume 100.8 fl (81-99); Mean Platelet Volume 10.2 fl (7.4-10.4); Monocytes # 0.5 K/mm3 (0.1-1.0); Monocytes % 5.7 % (1.7-9.3); Neutrophils # 6.5 K/mm3 (1.8-7.8); Neutrophils % 75.1 % (37.0-80.0); Platelet Count 285 K/mm3 (142-424); Red Blood Count 4.19 M/mm3 (4.20-5.40); White Blood Count 8.7 K/mm3 (4.8-10.8)
[2021-11-21 12:20] LABS: Chloride 104 mmol/L (98-107)
[2021-11-21 12:21] LABS: Potassium 4.1 mmoL/L (3.5-5.1); Sodium 137 mmol/L (136-145)
[2021-11-21 12:24] LABS: Anion Gap 11.1 mEq/L (5-15); Blood Urea Nitrogen 9 mg/dl (7-17); Calcium 8.8 mg/dl (8.4-10.2); Carbon Dioxide 26 mmol/L (22.0-30.0); Estimated Glomerular Filt Rate 120 ml/min (>60); GFR (African American) 145 ML/MIN (>60); Glucose 102 mg/dl (74-100)
[2021-11-21 12:41] LABS: Triiodothryronine (T3) Uptake 20 % (23.5-40.5)
[2021-11-21 12:42] LABS: Free Thyroxine Index 2.3 ug/dL (5.93-13.13); T4 (Thyroxine) 11.3 ug/dl (5.53-11.0)
[2021-11-21 12:55] LABS: Thyroid Stimulating Hormone 1.19 uIU/mL (0.465-4.68)
== END ==
PROVIDERS: PCP Internal Medicine Adolescent Medicine; Visit Provider Physician Assistant
DX: R00.0 Tachycardia, unspecified (principal); R00.2 Palpitations; Z34.90 Encounter for supervision of normal pregnancy, unspecified, unspecified trimester; I63.9 Cerebral infarction, unspecified
CPT/HCPCS: 36415; 80048; 84436; 84443; 84479; 85025

== ENCOUNTER → 2021-12-03 12:46 | Outpatient (CLI) | payer BC, SELFPAY ==
--- NOTE | 2021-12-03 12:50 | CA_ITS ---
APPROVED REPORT EXAM: Comprehensive 2D, Doppler, and color-flow Echocardiogram Manager Regional: Flor Currie RVT Ht: 5 ft 8 in Wt: 211lbs BSA: 2.09 BP: 113/71 mmHg Indications: PALPS,TACHYCARDIA,34 WKS PREG 2D Dimensions LVOT 2.07 cm (M/F) 1.5-2.5 LA Volume 34.80 mL LA Volume Index 16.65 mL/m2 (M/F) 16-34 M-Mode Dimensions RVDd 2.41 cm (0.9-2.6) LA Diam 2.88 cm (1.9-4.0) LVDd 3.37 cm (3.5-5.7) Ao Diam 2.79 cm (2.0-3.7) LVDs 2.08 cm (3.5-5.7) IVSd 0.96 cm (0.6-1.1) PWd 1.19 cm (0.6-1.1) EF (Teich) 69.60% FS 38.30% EDV (Teich) 46.40 mL TAPSE 1.98 (<1.7) ESV (Teich) 14.10 mL LV Diastology E Decel Time 150.00 (160-240 msec) E/A Ratio 2.0 MED E' 8.00 (< 7 cm/sec) E'/MED E' Ratio 13.65 (>14) LAT E' 15.10 (<10 cm/sec) E/LAT E' Ratio 7.23 (>14) Mitral Valve MV E Max Gallo. 109.00 (40-130 cm/s) MV A Velocity 55.00 (40-130 cm/s) E/A Ratio 1.99 MV Decel. Time 150.00 (160-240 ms) MV PHT 44.00 ms Pulmonary Valve PV Peak Velocity 73.00 (50-150 cm/s) Left Ventricle Left atrium is normal size, left ventricle is normal size, there is no concentric left ventricular hypertrophy, visually estimated ejection fraction 55% with no regional wall motion abnormality, diastolic parameters are within normal range. Right Ventricle Right atrium and right ventricle are normal size and contractility. Aortic Valve Aortic valve is grossly normal, there is no aortic stenosis or aortic insufficiency. Mitral Valve Mitral valve grossly normal, there is trace mitral regurgitation. Tricuspid Valve Tricuspid valve grossly normal, there is trace tricuspid regurgitation, tricuspid regurgitation jet velocity is inadequate for calculation of the right ventricular systolic pressure. Pulmonic Valve Pulmonic valve is poorly visualized. Great Vessels Aortic root is normal size. Pericardium No significant pericardial effusion. Inferior vena cava is normal size with normal inspiratory collapse. Conclusion 1. Normal left ventricular size, preserved left ventricular systolic function, visually estimated ejection fraction 55% with no regional wall motion abnormality, diastolic parameters are within normal range. 2. Trace mitral and tricuspid regurgitation. 3. No significant pericardial effusion noted. 4. Inferior vena cava is normal size with normal inspiratory collapse. Electronically signed by : Kishan Morris MD 12/03/2021 19:23:04
== END ==
PROVIDERS: PCP Internal Medicine Adolescent Medicine; Visit Provider Physician Assistant
DX: R00.2 Palpitations (principal); R00.0 Tachycardia, unspecified; Z3A.32 32 weeks gestation of pregnancy
CPT/HCPCS: 93306

== ENCOUNTER → 2021-12-09 10:09 | Outpatient (CLI) | payer BC, SELFPAY | PROVIDERS: Visit Provider Nurse Practitioner Obstetrics & Gynecology | DX: Z34.90 Encounter for supervision of normal pregnancy, unspecified, unspecified trimester (principal) | CPT/HCPCS: 86403 ==

== ENCOUNTER 2022-01-14 05:10 | Inpatient (IN) | payer BC, SELFPAY ==
[2022-01-14 05:13] VITALS: BP 114/59; PULSE 89; RESP 17; TEMP 36.7; O2SAT 99
[2022-01-14 05:14] VITALS: BMI 32.8
[2022-01-14 06:12] LABS: Coronavirus 19, PCR Not Detected (NotDetected); Influenza A, PCR Not Detected (NotDetected); Influenza B, PCR Not Detected (NotDetected); Microscopic, Urine URINE MICROSCOPIC (MICROSCOPIC)
[2022-01-14 06:21] VITALS: BP 144/78; PULSE 106; RESP 18; TEMP 36.6; O2SAT 97; BMI 32.8
[2022-01-14 06:26] LABS: Appearance,Urine SL CLOUDY (Clear); Bilirubin,Urine Negative (Negative); Blood, Urine Negative (Negative); Color,Urine YELLOW (Yellow); Glucose,Urine (UA) Negative (Negative); Ketones,Urine Negative (Negative); Leukocyte Esterase,Urine 2+ (Negative); Nitrate,Urine Negative (Negative); Protein,Urine Negative (Negative); Urobilinogen,Urine 0.2 EU/dl (0.2)
[2022-01-14 06:27] LABS: Basophils # 0.1 K/mm3 (0-0.2); Basophils % 0.7 % (0.1-2.0); Eosinophils # 0.1 K/mm3 (0.0-0.4); Hematocrit 38.1 % (37.0-47.0); Hemoglobin 12.2 g/dL (12.2-16.2); Lymphocytes # 2.7 K/mm3 (0.7-4.5); Lymphocytes % 31.4 % (10-50); Mean Corpuscular HGB Conc 31.9 g/dL (31.8-35.4); Mean Corpuscular Hemoglobin 31.8 pg (27.0-31.2); Mean Corpuscular Volume 99.7 fl (81-99); Mean Platelet Volume 12.9 fl (7.4-10.4); Monocytes # 0.5 K/mm3 (0.1-1.0); Monocytes % 6.1 % (1.7-9.3); Neutrophils # 5.2 K/mm3 (1.8-7.8); Neutrophils % 60.9 % (37.0-80.0); Platelet Count 251 K/mm3 (142-424); Red Blood Count 3.82 M/mm3 (4.20-5.40); Red Cell Distribution Width 13.6 % (11.5-17.5); White Blood Count 8.5 K/mm3 (4.8-10.8)
[2022-01-14 06:37] LABS: Bacteria,Urine 2+ /lpf
[2022-01-14 08:39] LABS: Benzodiazepines Screen,Urine Negative ng/ml (<200)
[2022-01-14 08:40] LABS: Amphetamine/Metha Screen,Urine Negative ng/ml (<1000); Barbiturates Screen,Urine Negative ng/ml (<200)
[2022-01-14 08:41] LABS: Methadone Screen,Urine Negative ng/ml (<300)
[2022-01-14 08:42] LABS: Cannabinoid Screen,Urine Negative ng/ml (<50); Cocaine Screen,Urine Negative ng/ml (<300)
[2022-01-14 08:43] LABS: Opiate Screen,Urine Negative ng/ml (<300); Phencyclidine Screen,Urine Negative ng/ml (<25)
--- NOTE | 2022-01-14 09:23 | HMH.LABNOT ---
Labor Note - Subjective: Date: 01/14/22 Time: 09:05 regular contraction - Objective: Contractions:: every 4-5 minutes Cervical Dilation:: 2-3 Effacement:: 50% Station: -2 Membranes: artificially ruptured Comment:: I ruptured her membranes and there was thin meconium - Fetus: Monitoring?: Yes monitoring type:: Internal and External Comment:: I inserted an IUPC - Assessment: Labor progressing?: Yes Cephalopelvic disproportion?: No Patient Problems: All Active Problems (This Medical Record has been edited. Action required.) Tachycardia (Acute) Palpitations (Acute) (Acute) - Plan: Anesthesia for epidural?: Yes Continue to labor down?: Yes Plan for ?: No Continue to monitor?: Yes Start pushing?: No
--- NOTE | 2022-01-14 09:24 | HMH.OBAPHP ---
OB - H&P: HPI Antepartum - History of Present Illness Chief complaint: Oligohydramnios, postterm History of present illness: She is a 26-year-old 3 para 1 aborta 1 who is 40 and 2 weeks gestational age. She was seen in my office yesterday and had low amniotic fluid. The amniotic fluid index was between 5 and 6. As result of that we have elected to deliver her postterm. - History of Present Criteria for establishing EDC:: LMP confirmed by 1st trimester US care: good care Ultrasounds: normal 1st trimester US, normal mid trimester US Obstetrical complications: other Medical complications: none - Labs Blood type: O (+) positive Rubella: immune RPR/VDRL: nonreactive GBS status: negative HBsAG: negative [facility] History I have reviewed the patient's past medical history: Yes Medical History: Denies:: Cancer, Diabetes Mellitus Type 1, Diabetes Mellitus Type 2, MRSA *Have you ever received a pneumonia vaccine?: No *Have you received a flu vaccine this season?: Yes Laterality Cases: Bilateral: Tonsillectomy Other Surgeries: Yes: No Previous Surgery. No: Amputation: No Fractures: No - *Social History Smoking Status: Never smoker Alcohol Intake: current Alcohol Intake Frequency:: holidays/special occasions only Substance Use Type: denies use *Occupational Status:: unemployed Housing: house Household Members: spouse *Travel in the last 8 weeks: None Family Hx:: Hypertension, Heart Attack, Cancer, Kidney Disease Para: 1 Review of Systems - Review of Systems Review of systems:: pertinent systems reviewed and negative unless documented below Meds Home Medications Medication Instructions Recorded Confirmed Type prenat.vits,lexis,ztu-hvuh-fejil 1 tab PO DAILY 02/03/19 01/14/22 History Ondansetron [Zofran 4mg ODT] 4 mg PO Q6H 01/14/22 01/14/22 History Allergies Allergy/AdvReac Type Severity Reaction Status Date / Time No Known Allergies Allergy Verified 01/13/22 08:46 OB - H&P: Exam - Physical Exam Vital signs: Temp Pulse Resp BP Pulse Ox 97.9 F 106 H 18 144/78 H 97 01/14/22 06:21 01/14/22 06:21 01/14/22 06:21 01/14/22 06:21 01/14/22 06:21 - Constitutional no acute distress - Routine HEENT Exam Head: Present: normocephalic Eye: Present: EOMI, PERRL ENT: Present: mucous membranes moist - Routine Neck Exam Present: supple, full ROM - Routine Respiratory Exam Absent: accessory muscle use (good air entry bilaterally), respiratory distress, wheezes, crackles - Routine Cardiovascular Exam Present: RRR. Absent: murmur - Routine Abdominal Exam Present: soft, normoactive bowel sounds. Absent: tenderness, distended, guarding - Routine Rectal Exam Patient deferred: visual exam, digital exam - Routine Exam Patient deferred: external exam, groin exam, perineal exam - Routine Extremities Exam Present: full ROM. Absent: cyanosis, edema - Routine Skin Exam Present: intact. Absent: cyanosis - Routine Neurological Exam Present: alert, oriented X3 - Routine Psychiatric Exam Present: normal affect OB - Results - Labs Labs: Short CBC 01/14/22 Range/Units 05:55 WBC 8.5 (4.8-10.8) K/mm3 Hgb 12.2 (12.2-16.2) g/dL Hct 38.1 (37.0-47.0) % Plt Count 251 (142-424) K/mm3 Urine 01/14/22 Range/Units 05:55 Urine Color Yellow (Yellow) Urine Appearance Sl cloudy (Clear) Urine pH 6.0 (5.0-8.5) Ur Specific Kersey 1.020 (1.005-1.030) Urine Protein Negative (Negative) Urine Glucose (UA) Negative (Negative) OB - A/P Antepartum (1) Post-term Status: Acute (2) Oligohydramnios antepartum Status: Acute - Additional Plan Planning to breastfeed?: Yes Plan: induction Additional Information:: She is 2 days post dates and ultrasound showed that she had oligohydramnios. As result of that working to deliver her today.
--- NOTE | 2022-01-14 10:47 | HMH.LABNOT ---
Labor Note - Subjective: Date: 01/14/22 Time: 10:47 regular contraction - Objective: NST:: Reactive Contractions:: every 2-3 minutes Cervical Dilation:: 4-5 Effacement:: 90% Station: -1 Membranes: artificially ruptured - Fetus: Monitoring?: Yes monitoring type:: Internal Comment:: I applied a scalp clip. - Assessment: Labor progressing?: Yes Cephalopelvic disproportion?: No Patient Problems: All Active Problems (This Medical Record has been edited. Action required.) Post-term (Acute) Oligohydramnios antepartum (Acute) Tachycardia (Acute) Palpitations (Acute) (Acute) - Plan: Anesthesia for epidural?: Yes Continue to labor down?: Yes Plan for ?: No Continue to monitor?: Yes Start pushing?: No Comment:: She is progressing well. The baby's head has come down. There has been no other episodes of thin meconium.
[2022-01-14 12:00] VITALS: BP 118/63; PULSE 94; RESP 18; TEMP 37.1; O2SAT 99
--- NOTE | 2022-01-14 12:19 | HMH.ANESCL ---
[facility] Anesthesia Checklist - Patient Identification Patient Identification: Arm Band - Structural Data Admitted From: Inpatient Planned Operative Procedure/s: labor epidural Consent for Planned Operative Procedure(s) Verified: Yes Verified Documents: Surgical Consent, History and Physical - NPO Status Verified Time NPO: 00:00 - Additional verifications Anesthesia Reactions: No - Airway Assessment C-Spine Mobility Assessed: Yes TMJ Mobility Assessed: Yes Dentition: Good Dentition - Neurological Assessment Level of Consciousness: Awake, Alert - Anesthesia Plan Anesthesia Risk discussed: Yes Anesthesia Plan: Verified ASA Class: II Anesthesia Type: Epidural [facility] History I have reviewed the patient's past medical history: Yes Medical History: Denies:: Cancer, Diabetes Mellitus Type 1, Diabetes Mellitus Type 2, MRSA *Have you ever received a pneumonia vaccine?: No *Have you received a flu vaccine this season?: Yes Anesthesia experience/problems:: nac Laterality Cases: Bilateral: Tonsillectomy Other Surgeries: Yes: No Previous Surgery. No: Amputation: No Fractures: No - *Social History Smoking Status: Never smoker Alcohol Intake: current Alcohol Intake Frequency:: holidays/special occasions only Substance Use Type: denies use *Occupational Status:: unemployed Housing: house Household Members: spouse *Travel in the last 8 weeks: None Family Hx:: Hypertension, Heart Attack, Cancer, Kidney Disease Para: 1
--- NOTE | 2022-01-14 12:52 | HMH.LABNOT ---
Labor Note - Subjective: Date: 01/14/22 Time: 12:52 regular contraction - Objective: NST:: Reactive Contractions:: every 2-3 minutes Cervical Dilation:: 6-7 Effacement:: 100% Station: 0 Membranes: artificially ruptured - Fetus: Monitoring?: Yes monitoring type:: Internal - Assessment: Labor progressing?: Yes Cephalopelvic disproportion?: No Patient Problems: All Active Problems (This Medical Record has been edited. Action required.) Post-term (Acute) Oligohydramnios antepartum (Acute) Tachycardia (Acute) Palpitations (Acute) (Acute) - Plan: Anesthesia for epidural?: Yes Continue to labor down?: Yes Plan for ?: No Continue to monitor?: Yes Start pushing?: No
--- NOTE | 2022-01-14 15:02 | P.PCN_ITS ---
- Delivery Note Delivery Date:: 01/14/22 Delivery Time:: 14:18 Anesthesia Type: Epidural Was labor medically induced?: Yes Induction method: per pitocin protocol Gestational age (weeks): 40 Infant delivered prior to 39 weeks?: No Justification for early elective delivery:: Oligohydraminos Infant Gender: Female at 1 minute: 8 at 5 minutes: 9 LAC or MLE?: LAC Delivery Procedure:: She was started on IV oxytocin had her membranes ruptured. Under labor epidural prescription full dilation and delivered spontaneously a liveborn female child at 2:18 PM in the afternoon of January 14, 2022. On deliver the head the anterior shoulder then easily delivered followed by the rest the infant's body atraumatically. There was some terminal meconium. The oropharynx and nasopharynx were bulb suction. The baby cried spontaneously. The baby was vigorous. We allowed the cord to continue to pulsate for approximately 1 minute. The cord was then doubly clamped and cut and the infant was handed off to Dr. Gutiérrez who assigned Apgars of 8 at 1 minute and 9 at 5 minutes. We then obtained cord blood. She received IV oxytocin and using gentle traction on the cord and countertraction on the fundus I was able to easily deliver the placenta intact at 2:21 PM. It had a normal three-vessel cord. She had a small first-degree perineal laceration that was repaired with interrupted 3-0 Vicryl Rapide suture. Estimated blood loss was approximately 300 cc. She has O+ blood, she is rubella immune and was group B streptococcus negative. She plans to breast-feed. Her behavioral medical director is Dr. Gutiérrez. Of note the baby is left foot was twisted upwards likely as result of compression on the foot while the baby was intrauterine. The foot appears to have normal anatomy. Laceration:: vaginal Placental Delivery Description: Spontaneous
[2022-01-14 17:27] VITALS: BP 127/68; PULSE 113; RESP 18; TEMP 36.9; O2SAT 99
[2022-01-14 19:44] VITALS: BP 138/87; PULSE 105; RESP 18; TEMP 36.7; O2SAT 100
[2022-01-15 04:05] VITALS: BP 116/72; PULSE 73; RESP 17; TEMP 36.6; O2SAT 97
[2022-01-15 06:47] LABS: Hematocrit 34.2 % (37.0-47.0)
[2022-01-15 09:39] VITALS: BP 120/73; PULSE 81; RESP 16; TEMP 36.6; O2SAT 100
--- NOTE | 2022-01-15 13:56 | P.DS_ITS ---
General - General Admission date:: 01/14/22 Discharge date: 01/15/22 HPI - History of Present Illness History of present illness: She is a 26-year-old 3 now para 2 aborta 1 who was 40 weeks and 2 days gestational age. She had oligohydramnios and as result of that we elected to induce her labor at term. Hospital Course Hospital Course: She was started on IV oxytocin had her membranes ruptured. Under labor epidural she progressed to full dilation and delivered spontaneously a liveborn female child at 2:18 PM in the afternoon of January 14, 2022. The baby weighed 9 pounds 7 ounces and was 20 inches long. She had Apgars of 8 at 1 minute and 9 at 5 minutes. The patient had a small first-degree perineal laceration. She has done well and has remained afebrile without her hospitalization. She is eating and drinking and ambulating. She is breast- feeding. Her process engineering intern Dr. Gutiérrez. She has O+ blood, she is rubella immune and was group B streptococcus negative. She is discharged home to follow-up with me in approximately 2 weeks time. She will continue with her vitamins and iron. She will take [id number] analgesics. Her condition on discharge is stable and improved. Rhogam Administration: Not Indicated Objective Vital signs: Temp Pulse Resp BP Pulse Ox 97.9 F 81 16 120/73 100 01/15/22 09:39 01/15/22 09:39 01/15/22 09:39 01/15/22 09:39 01/15/22 09:39 no acute distress - *Routine HEENT Exam Head: Present: normocephalic Eye: Present: EOMI, PERRL ENT: Present: mucous membranes moist Results Labs on day of discharge: Labs from last 24 hours 01/15/22 06:15 Hgb 11.0 L Hct 34.2 L Preliminary micro results at discharge 01/14/22 05:55 Urine Culture - Preliminary Urine,Clean Catch DS: Diagnosis - Discharge Diagnosis (1) Post-term Status: Acute (2) Oligohydramnios antepartum Status: Acute (3) Normal delivery at term Status: Acute Discharge Plan - Patient Discharge Instructions ACTIVITY: No heavy lifting DIET: continue same diet Additional Instructions: FOLLOW-UP WITH DR. MALONE ON 01/29/22 AT 11:15 NOTHING IN THE VAGINA FOR 6 WEEKS NO HEAVY LIFTING OR STRENUOUS ACTIVITY DRINK PLENTY OF FLUIDS Patient Instructions: Depression, Hemorrhage, DI for Labor and Delivery, Vaginal , DI for Pre-eclampsia, [facility] Post Discharge Instructions, Preventing the Spread of Coronavirus Discharge Instructions - Follow up Plan Follow up with: Enio Malone MD [Staff Physician] - Disposition: Home, Self-Care Condition at discharge:: Stable Home Medications: Home Medications Medication Instructions Recorded Confirmed Type prenat.vits,lexis,zwn-peet-gwkrf 1 tab PO DAILY 02/03/19 01/14/22 History Ondansetron [Zofran 4mg ODT] 4 mg PO Q6H 01/14/22 01/14/22 History Prescriptions/Medication Reconciliation: Continued prenat.vits,lexis,vrb-ifoh-ocihj 1 tab PO DAILY Ondansetron [Zofran 4mg ODT] 4 mg PO Q6H - Problem Reconciliation Problems Reviewed?: Yes
== END 2022-01-15 18:10 | disposition home or self-care (01) | DRG 806 ==
PROVIDERS: Admitting Provider Nurse Practitioner Obstetrics & Gynecology; PCP Internal Medicine Adolescent Medicine; Visit Provider Nurse Practitioner Obstetrics & Gynecology
DX: O48.0 Post-term pregnancy (principal); O41.03X0 Oligohydramnios, third trimester, not applicable or unspecified; Z37.0 Single live birth; Z3A.40 40 weeks gestation of pregnancy; O70.0 First degree perineal laceration during delivery
CPT/HCPCS: 59409; 36415; 59025; 80305; 81001; 85014; 85018; 85025; 86850; 87086; 94761; C1758; C9803; G0283; U0003; U0005

== ENCOUNTER → 2022-06-25 18:00 | Outpatient (CLI) | payer BC, SELFPAY | PROVIDERS: PCP Internal Medicine Adolescent Medicine; Visit Provider Nurse Practitioner | DX: J02.9 Acute pharyngitis, unspecified (principal) ==

== ENCOUNTER 2023-07-25 10:24 | Emergency (ER) | payer BC, SELFPAY ==
[2023-07-25] VITALS (7 sets, daily range): BP systolic 114–131; BP diastolic 67–76; PULSE 76–97; RESP 16–18; TEMP 36.7–37; O2SAT 98–100; BMI 24.0
--- NOTE | 2023-07-25 10:37 | PC.NURSE ---
Dr. Mccall at BS for pt eval
--- NOTE | 2023-07-25 10:37 | PC.NURSE ---
Dr. Mccall at bedside
--- NOTE | 2023-07-25 10:39 | CT_ITS ---
PROCEDURE INFORMATION: Exam: CT Head Without Contrast Exam date and time: 07/25/2023 11:00 AM Age: 28 years old Clinical indication: Pain; Headache not specified; Additional info: Sudden onset headache since 8 pm TECHNIQUE: Imaging protocol: Computed tomography of the head without contrast. Radiation optimization: All CT scans at this facility use at least one of these dose optimization techniques: automated exposure control; mA and/or kV adjustment per patient size (includes targeted exams where dose is matched to clinical indication); or iterative reconstruction. REPORTING DATA: Count of CT and Cardiac NM exams in prior 12 months: This patient has received 0 known CTs and 0 known cardiac nuclear medicine studies in the 12 months prior to the current study. COMPARISON: No relevant prior studies available. FINDINGS: Brain: Normal. No hemorrhage. Unremarkable white matter. No mass effect. Cerebral ventricles: No ventriculomegaly. Paranasal sinuses: Visualized sinuses are unremarkable. No fluid levels. Mastoid air cells: Visualized mastoid air cells are well aerated. Bones/joints: Unremarkable. No acute fracture. Soft tissues: Unremarkable. IMPRESSION: No acute intracranial abnormality.
--- NOTE | 2023-07-25 10:41 | HMH.EDHA ---
Discharge Plan Disposition Patient Disposition: Home, Self-Care Chief Complaint: Headache Prescriptions Prescriptions: No Action prenat.vits,lexis,cln-[id number]-xbklx tablet 1 tab PO DAILY Referrals Follow up/Referrals: Mo Escalante MD [Primary Care Provider] - See instructions Activity Restrictions/Add. Instructions Additional Instructions/Restrictions: Please return immediately if you feel worse in any way. Follow-up with your primary care doctor in about 3 to 4 days if symptoms do not improve. Continue taking all medications as prescribed. Clinical Impressions Clinical Impression: Headache Qualifiers: Headache type: unspecified Instructions Patient Instructions: DI for Headache Discharge ED Provider: Roseann Mccall Headache HPI General Chief Complaint: Headache Stated Complaint: h/a Time Seen by Provider: 07/25/23 10:33 Mode of Arrival: Ambulatory Source of Information: Patient Limitations: No Limitations Description of Symptoms (Recalled from ER Triage Doc. by RN): pt presents to ED with a headache that started around 1999. pt reports headache is located t/o entire forehead and wraps around entire head. pt reports no relief with Tylenol and Motrin. pt reports nausea. History of Present Illness HPI Narrative: The patient presents to the emergency department complaining of a sudden onset headache that began about 8 PM yesterday. 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 She states that she has had a history of migraine headaches in the past. However, this headache feels different. She has no family history or personal history of aneurysms. She breast-feeds. She denies . She is not allergic to any medications. She is not on any medications. Complaint: headache Related Data Home Medications Medication Instructions Recorded Confirmed prenat.vits,lexis,cwn-sjkb-pmxem 1 tab PO DAILY Supplement 02/03/19 04/01/23 Allergies Allergy/AdvReac Type Severity Reaction Status Date / Time No Known Allergies Allergy Verified 04/01/23 10:39 [facility] History Hepatitis A Screen Attestation statement:: This patient has been screened for Hepatitis A risk factors. Medical History: Denies: Cancer, Diabetes Mellitus Type 1, Diabetes Mellitus Type 2 or MRSA Laterality Cases: Bilateral: Tonsillectomy Other Surgeries: Yes No Previous Surgery; No Amputation: No Fractures: No Social History Smoking Status: Never smoker Alcohol Intake: former Alcohol Intake Frequency:: holidays/special occasions only Substance Use Type: denies use Occupational Status: unemployed Housing: house Household Members: spouse Family Hx:: Cancer, Heart Attack, Hypertension and Kidney Disease [facility] Disclaimer: The information contained in this section may have been updated after the patient was seen, as this information can be updated by other users. Medical History Palpitations Tachycardia Surgical History History of surgery on left wrist Hx of tonsillectomy Hx of wisdom tooth extraction Family History Other Coronary artery disease Diabetes Heart attack Kidney disease Social History Smoking Status: Never smoker alcohol intake: former substance use type: denies use current occupational status: unemployed Travel in the last 8 weeks: None household members: spouse housing: house caffeine: No ROS Obtained: Yes All systems reviewed & no additional complaints except as documented Physical Exam General General appearance: alert Head Head exam: atraumatic Eye Eye exam: Present normal appearance ENT ENT exam: Present normal exam Neck Neck exam: Present normal inspection, full ROM and trachea midline; Absent tenderness or meningismus Chest Chest inspection:
--- NOTE | 2023-07-25 10:41 | PC.NURSE ---
urine sent to lab.
[2023-07-25 10:47] LABS: Urine Pregnancy, HCG Qual. Negative (Negative)
--- NOTE | 2023-07-25 10:56 | PC.NURSE ---
pt going to radiology at this time.
--- NOTE | 2023-07-25 11:40 | PC.NURSE ---
Rounded on pt, states her pain is better but still present. Rates 3/10 on [employer]OS[employer] PROFESSOR.
--- NOTE | 2023-07-25 11:59 | PC.NURSE ---
Dr. Mccall as bedside
== END 2023-07-25 12:10 | disposition home or self-care (01) ==
PROVIDERS: Emergency Provider Emergency Medicine; PCP Internal Medicine Adolescent Medicine
DX: G44.89 Other headache syndrome (principal)
CPT/HCPCS: 70450; 81025; 96374; 96375; 99284

== ENCOUNTER 2024-05-06 07:45 | Outpatient (CLI) | payer BC, SELFPAY ==
[2024-05-06 11:24] LABS: MANUAL DIFFERENTIAL MANUAL DIFFERENTIAL (MANUAL DIFF)
[2024-05-06 11:29] LABS: Basophils % 0.7 % (0.1-2.0); Eosinophils # 0.1 K/mm3 (0.0-0.4); Eosinophils % 1.8 % (0.1-12.0); Hematocrit 41.8 % (37.0-47.0); Hemoglobin 13.8 g/dL (12.2-16.2); Lymphocytes # 2.1 K/mm3 (0.7-4.5); Lymphocytes % 40.8 % (10-50); Mean Corpuscular Hemoglobin 32.6 pg (27.0-31.2); Mean Corpuscular Volume 98.8 fl (81-99); Mean Platelet Volume 10.4 fl (7.4-10.4); Monocytes # 0.3 K/mm3 (0.1-1.0); Neutrophils # 2.6 K/mm3 (1.8-7.8); Neutrophils % 50.7 % (37.0-80.0); Platelet Count 275 K/mm3 (142-424); Red Blood Count 4.23 M/mm3 (4.20-5.40); Red Cell Distribution Width 12.6 % (11.5-17.5); White Blood Count 5.2 K/mm3 (4.8-10.8)
[2024-05-06 11:30] LABS: Chloride 108 mmol/L (98-107); Sodium 142 mmol/L (136-145)
[2024-05-06 11:32] LABS: Alanine Aminotransferase 19 U/L (12-78); Aspartate Amino Transferase 28 U/L (14-36); Blood Urea Nitrogen 14 mg/dl (7-17); Estimated Glomerular Filt Rate 98 ml/min (>60); GFR (African American) 119 ML/MIN (>60)
[2024-05-06 11:33] LABS: Albumin Level 4.6 g/dl (3.5-5.0); Albumin/Globulin Ratio 1.6 (1.1-1.8); Alkaline Phosphatase 54 U/L (38-126); Bilirubin,Total 0.7 mg/dl (0.2-1.3); Calcium 9.3 mg/dl (8.4-10.2); Carbon Dioxide 27 mmol/L (22.0-30.0); Globulin 2.9 g/dL (1.3-3.2); Glucose 101 mg/dl (74-100); HDL Cholesterol 45 mg/dl (40-60); Total Protein,Serum 7.5 g/dl (6.3-8.2)
[2024-05-06 11:35] LABS: Chol/HDL Ratio 3.9 (1-3.5); Cholesterol 175 mg/dl (140-200); Triglycerides 61 mg/dl (30-150); VLDL Cholesterol 12 mg/dL (0-40)
[2024-05-06 12:04] LABS: Thyroid Stimulating Hormone 3.51 uIU/mL (0.465-4.68)
[2024-05-06 12:15] LABS: Eosinophils % 2 % (0-3); Lymphocytes % 40 % (10-50); Monocytes % 2 % (2-9); Neutrophils % 56 % (42-76); Platelet Estimate Normal; RBC Morphology Normal; Total Cells Counted 100
[2024-05-06 13:14] LABS: Hemoglobin A1C 5.8 % (4.0-6.0)
[2024-05-15 20:08] LABS: 1,25 Dihydroxy Vitamin D 39 pg/mL (.); 1,25-Dihydroxy, Vitamin D-2 <10 pg/mL (.); 1,25-Dihydroxy, Vitamin D-3 39 pg/mL (.)
== END 2024-05-06 23:59 | disposition home or self-care (01) ==
LOC: LAB 07:46
PROVIDERS: PCP Internal Medicine Adolescent Medicine; Visit Provider Obstetrics & Gynecology
DX: Z01.419 Encounter for gynecological examination (general) (routine) without abnormal findings (principal)
CPT/HCPCS: 80053; 80061; 82652; 83036; 84443; 85007; 85014; 85018; 85048; 85049

== ENCOUNTER 2024-07-15 13:21 | Outpatient (CLI) | payer BC, SELFPAY ==
[2024-07-15 14:40] LABS: HCG,Quantitative 11591 mIU/ml (0-5.42)
[2024-07-16 09:57] LABS: Progesterone 8.6 ng/mL (.)
== END 2024-07-15 23:59 | disposition home or self-care (01) ==
LOC: LAB 13:22
PROVIDERS: PCP Internal Medicine Adolescent Medicine; Visit Provider Obstetrics & Gynecology
DX: N92.6 Irregular menstruation, unspecified (principal)
CPT/HCPCS: 36415; 84144; 84702

== ENCOUNTER 2024-08-09 09:30 | Outpatient (CLI) | payer BC, SELFPAY ==
[2024-08-09 17:14] LABS: Amphetamine/Metha Screen,Urine Negative ng/ml (<1000); Barbiturates Screen,Urine Negative ng/ml (<200)
[2024-08-09 17:15] LABS: Benzodiazepines Screen,Urine Negative ng/ml (<200)
[2024-08-09 17:16] LABS: Cannabinoid Screen,Urine Negative ng/ml (<50); Cocaine Screen,Urine Negative ng/ml (<300)
[2024-08-09 17:17] LABS: Methadone Screen,Urine Negative ng/ml (<300); Opiate Screen,Urine Negative ng/ml (<300)
[2024-08-09 17:20] LABS: Phencyclidine Screen,Urine Negative ng/ml (<25)
[2024-08-11 21:14] LABS: Neisseria gonorrhoeae, NAA Negative (Negative)
== END 2024-08-09 23:59 | disposition home or self-care (01) ==
LOC: LAB.DROPOF 08-10 07:59
PROVIDERS: PCP Obstetrics & Gynecology; Visit Provider Obstetrics & Gynecology
DX: Z34.81 Encounter for supervision of other normal pregnancy, first trimester (principal); Z3A.09 9 weeks gestation of pregnancy; Z87.59 Personal history of other complications of pregnancy, childbirth and the puerperium
CPT/HCPCS: 80307; 87086; 87491; 87591

== ENCOUNTER 2024-08-12 16:44 | Outpatient (CLI) | payer BC, SELFPAY ==
[2024-08-12 17:17] LABS: Basophils % 0.5 % (0.1-2.0); Eosinophils # 0.1 K/mm3 (0.0-0.4); Eosinophils % 0.8 % (0.1-12.0); Hematocrit 39.7 % (37.0-47.0); Hemoglobin 13.6 g/dL (12.2-16.2); Lymphocytes # 2.6 K/mm3 (0.7-4.5); Lymphocytes % 31.5 % (10-50); Mean Corpuscular HGB Conc 34.2 g/dL (31.8-35.4); Mean Corpuscular Hemoglobin 32.4 pg (27.0-31.2); Mean Corpuscular Volume 94.5 fl (81-99); Mean Platelet Volume 8.8 fl (7.4-10.4); Monocytes # 0.5 K/mm3 (0.1-1.0); Monocytes % 5.7 % (1.7-9.3); Neutrophils # 5.1 K/mm3 (1.8-7.8); Neutrophils % 61.4 % (37.0-80.0); Platelet Count 291 K/mm3 (142-424); Red Cell Distribution Width 12.9 % (11.5-17.5); White Blood Count 8.2 K/mm3 (4.8-10.8)
[2024-08-12 18:33] LABS: HIV (1&2) Antibody Rapid NONREACTIVE (NONREACTIVE)
[2024-08-14 08:10] LABS: HCV Ab Non Reactive (Non Reactive); Hepatitis B Surface Antigen Negative (Negative); Rubella Antibodies, IgG 4.54 index (Immune >0.99)
[2024-08-14 09:09] LABS: Rapid Plasma Reagin Ab Titer Non Reactive titer (NonRea<1:1)
== END 2024-08-12 23:59 | disposition home or self-care (01) ==
LOC: LAB 16:44
PROVIDERS: PCP Internal Medicine Adolescent Medicine; Visit Provider Obstetrics & Gynecology
DX: Z34.90 Encounter for supervision of normal pregnancy, unspecified, unspecified trimester (principal)
CPT/HCPCS: 36415; 85025; 86593; 86762; 86803; 86850; 87340; 87389

== ENCOUNTER 2024-10-24 14:20 | Outpatient (CLI) | payer BC, SELFPAY ==
--- NOTE | 2024-10-24 14:21 | US_ITS ---
PROCEDURE: US OB /MATERNAL DETAIL CLINICAL INDICATION: anatomy scan COMPARISON: No exams were available for comparison FINDINGS: Transabdominal sonographic images of the pelvis were obtained. From her established due date she is 20 weeks 1 day. Single viable intrauterine gestation. Cephalic position. Placenta: Anteriorplacenta grade 1. There is a vascular area above the mid placenta. There is an average amount of fluid. The cervix appears satisfactory. Closed and measuring 3.2 cm in length. Complete survey performed and was unremarkable on the submitted images as in PACS. No discrete anomalies identified on survey imaging by technologist. Active fetus. Three-vessel cord with satisfactory umbilical cord insertion. 4- chamber heart noted. Situs, aortic arch, LVOT, RVOT, three-vessel view appear normal. Survey of brain & ventricles Unremarkable. Cerebellum, thalamus, choroid plexus, cisterna magna appear normal. Face and neck survey unremarkable. Profile, nasion, lips and nose appeared normal. Diaphragm and chest views unremarkable. Abdomen: Both kidneys noted and unremarkable. Stomach and bladder noted and satisfactory. Spine: Survey of the spine satisfactory with no anomalies identified nor imaged. Cervical, thoracic, lower spine appear normal. Both arms and legs noted. Amniotic Fluid: Adequate. MVP 5.29 cm Measurements: Average ultrasound age 20weeks 2days. Estimated due date by ultrasound age 0503/11/2025. Estimated weight 350g BPD = 20weeks 1day HC = 20weeks 1day AC = 21weeks 1day FL = 19weeks 5days Growth Percentile= 59 Heart Rate = 153bpm Cerebellum = 19weeks 0 days Humerus = 20weeks 2days HC/AC is 1.1 FL/BPD is 0.67 FL/AC is 0.2 IMPRESSION: 1. Viable fetus in the cephalic presentation with an anterior placenta grade 1. There is a vascular area in the midline above the placenta. Suggest follow-up at 28 weeks. 2. The fluid is within normal limits with an MVP 5.29 cm. 3. Anatomical scan appears normal. 4. biometry is consistent with the dates. Dictated by: Enio Malone MD 10/25/2024 08:29 Enio Malone MD in [place] 10/25/2024 08:29
== END 2024-10-24 23:59 | disposition home or self-care (01) ==
LOC: RAD 14:21
PROVIDERS: PCP Nurse Practitioner Family; Visit Provider Obstetrics & Gynecology
DX: Z36.89 Encounter for other specified antenatal screening (principal); Z3A.20 20 weeks gestation of pregnancy
CPT/HCPCS: 76811

== ENCOUNTER 2024-12-20 08:15 | Outpatient (CLI) | payer BC, SELFPAY ==
--- NOTE | 2024-12-20 08:27 | US_ITS ---
PROCEDURE: US OB FOLLOW UP CLINICAL INDICATION: EFW and Evaluate placenta COMPARISON: US US OB /MATERNAL DETAIL from 10/24/2024 FINDINGS: Transabdominal sonographic images of the pelvis were obtained. The following parameters are obtained: From her established due date she is 28weeks 2days Viable fetus in the breech presentation with an anterior placenta grade 1. There are at least 3 placental lakes. The cervix measures 3.65 cm heart rate: 133bpm bpm. BPD: 29weeks 1day, 64 percentile HC: 30weeks 0 days, 69 percentile AC: 28weeks 5days, 52 percentile FL: 28weeks 0 days, 24 percentile HC/AC: 1.13 FL/BPD: 0.72 FL/AC: 0.21 Growth percentile: 45 Amniotic fluid index: 16.92cm MVP 6.8 cm. No obvious anomalies evident. profile seen, stomach, bladder, kidneys, three-vessel cord, four chamber heart appear normal. IMPRESSION: 1. Viable fetus in the breech presentation with an anterior placenta grade 1. There are at least 3 small placental lakes seen. 2. The previously described hypervascular area above the placenta is no longer visualized. 3. The fluid is within normal limits with an amniotic fluid index 16.92 cm, MVP 6.8 cm. 4. There has been good interval growth with the fetus currently 45th percentile. 5. Limited anatomical scan appears normal. Dictated by: Enio Malone MD 12/20/2024 11:44 Enio Malone MD in [facility] 12/20/2024 11:44
[2024-12-20 10:05] LABS: Glucose,Fasting 94 mg/dl (74-100)
[2024-12-20 11:16] LABS: Glucose 1 Hour 99 mg/dL (74-100)
== END 2024-12-20 23:59 | disposition home or self-care (01) ==
PROVIDERS: PCP Internal Medicine Adolescent Medicine; Visit Provider Obstetrics & Gynecology
DX: Z36.2 Encounter for other antenatal screening follow-up (principal); Z3A.28 28 weeks gestation of pregnancy; Z87.59 Personal history of other complications of pregnancy, childbirth and the puerperium
CPT/HCPCS: 36415; 76816; 82951

== ENCOUNTER 2025-02-15 14:00 | Outpatient (CLI) | payer BC, SELFPAY | END 2025-02-15 23:59 | disposition home or self-care (01) | LOC: LAB.DROPOF 02-16 09:07 | PROVIDERS: PCP Obstetrics & Gynecology; Visit Provider Obstetrics & Gynecology | DX: Z34.83 Encounter for supervision of other normal pregnancy, third trimester (principal); Z3A.36 36 weeks gestation of pregnancy | CPT/HCPCS: 86403 ==

== ENCOUNTER 2025-03-13 10:29 | Outpatient (CLI) | payer BC, SELFPAY ==
[2025-03-13 10:45] VITALS: BMI 33.0
[2025-03-13 11:00] VITALS: BP 131/77; PULSE 90; RESP 17; TEMP 37.1; O2SAT 98; BMI 33.1
[2025-03-13 11:06] LABS: Microscopic, Urine URINE MICROSCOPIC (MICROSCOPIC)
[2025-03-13 11:23] LABS: Fetal Membrane Rupture (Rapid) Negative (Negative)
[2025-03-13 11:32] LABS: Appearance,Urine CLEAR (Clear); Bilirubin,Urine Negative (Negative); Blood, Urine Negative (Negative); Color,Urine YELLOW (Yellow); Glucose,Urine (UA) Negative (Negative); Ketones,Urine Negative (Negative); Leukocyte Esterase,Urine TRACE (Negative); Nitrate,Urine Negative (Negative); Protein,Urine Negative (Negative); Specific Gravity, Urine <= 1.005 (1.005-1.030); Urobilinogen,Urine 0.2 EU/dl (0.2)
[2025-03-13 12:28] LABS: Bacteria,Urine Trace /lpf; WBC,Urine Occasional #/hpf (0-3)
== END 2025-03-13 11:45 ==
LOC: OBOUT 10:31 → OB 10:31
PROVIDERS: PCP Internal Medicine Adolescent Medicine; Visit Provider Obstetrics & Gynecology
DX: O47.1 False labor at or after 37 completed weeks of gestation (principal); Z3A.40 40 weeks gestation of pregnancy
CPT/HCPCS: 81001; 84112; G0463

== ENCOUNTER 2025-03-14 17:59 | Inpatient (IN) | payer BC, SELFPAY ==
[2025-03-14 18:10] VITALS: BP 134/76; RESP 20; TEMP 36.7; O2SAT 100; BMI 33.0
[2025-03-14 18:36] LABS: Microscopic, Urine URINE MICROSCOPIC (MICROSCOPIC)
[2025-03-14 18:40] LABS: Appearance,Urine CLEAR (Clear); Bilirubin,Urine Negative (Negative); Blood, Urine Negative (Negative); Color,Urine YELLOW (Yellow); Glucose,Urine (UA) Negative (Negative); Ketones,Urine Negative (Negative); Leukocyte Esterase,Urine Negative (Negative); Nitrate,Urine Negative (Negative); Protein,Urine TRACE (Negative); Specific Gravity, Urine <= 1.005 (1.005-1.030); Urobilinogen,Urine 0.2 EU/dl (0.2)
[2025-03-14 18:46] LABS: Fetal Membrane Rupture (Rapid) Positive (Negative)
[2025-03-14 18:54] LABS: Bacteria,Urine Trace /lpf; Squamous Epithelial Cell,Urine Occasional #/hpf (0-5); WBC,Urine Occasional #/hpf (0-3)
[2025-03-14 20:20] LABS: Basophils % 0.3 % (0.1-2.0); Eosinophils # 0.1 Kmm3 (0.0-0.4); Immature Granulocytes # 0.05 10^3uL; Immature Granulocytes % 0.5 %; Lymphocytes % 21.1 % (10-50); Mean Corpuscular HGB Conc 32.4 g/dL (31.8-35.4); Mean Corpuscular Hemoglobin 31.2 pg (27.0-31.2); Mean Corpuscular Volume 96.1 fl (81-99); Mean Platelet Volume 12.6 fl (7.4-10.4); Monocytes # 0.8 K/mm3 (0.1-1.0); Monocytes % 8.7 % (1.7-9.3); Neutrophils # 6.3 K/mm3 (1.8-7.8); Neutrophils % 68.4 % (37.0-80.0); Nucleated Red Blood Cells # 0 10^3/uL; Nucleated Red Blood Cells % 0 %; Platelet Count 288 K/mm3 (142-424); Red Blood Count 3.85 M/mm3 (4.20-5.40); Red Cell Distribution Width 12.8 % (11.5-17.5); White Blood Count 9.3 K/mm3 (4.8-10.8)
--- NOTE | 2025-03-15 02:33 | EXP.HP ---
History of Present Illness *Admission Date: 03/14/25 *Reason for visit:: Labor *History of present illness: Vickie Treviño is a 30-year-old at 40 weeks and 3 days gestation who presented to labor and delivery with regular painful contractions and SROM, clear fluid. Amnisure positive. Her has been uncomplicated. On presentation patient endorsed good movement. O+, antibody negative, rubella immune, hepatitis B negative, hepatitis C negative, RPR negative, HIV negative 1 hour GTT: 99 GBS negative PFSH [facility] Disclaimer: The information contained in this section may have been updated after the patient was seen, as this information can be updated by other users. Medical History History of one miscarriage Nausea/vomiting in Tachycardia Palpitations Surgical History History of tonsillectomy and adenoidectomy History of surgery on left wrist Hx of wisdom tooth extraction Family History Other Coronary artery disease Diabetes Heart attack Kidney disease Social History (Updated 03/14/25 @ 20:10 by Karen Finch RN) Smoking Status: Never smoker alcohol intake: former substance use type: denies use current occupational status: employed Travel in the last 8 weeks?: None household members: spouse housing: house caffeine: No Have you lived/traveled outside [place] in past 30 days?: No Contact w/someone who lives/traveled outside US past 30 days?: No Exposure to someone with infectious disease in past 14 days?: No Do you have a fever (greater than 100.4 F or 38 C)?: No Have you tested positive for COVID-19?: No Exposed to someone with COVID-19 in past 14 days?: No Do you have a sore throat?: No Do you have a cough?: No Do you have any weakness?: No Are you experiencing any nausea/vomitting?: No Do you have any diarrhea?: No Are you experiencing any unusual bleeding?: No Do you have any muscle aches/pain?: No Do you have any abdominal pain?: No Are you experiencing loss of taste or smell?: No Other Medical History Have you received the Flu Vaccine for this season: Yes Have you received the Pneumonia Vaccine: No Review of Systems Review of Systems Review of systems (narrative): Review of Systems Constitutional: Denies fever, chills, and sweats Eyes: Denies vision change/ pain Respiratory: Denies cough and shortness of breath Cardiovascular: Denies chest pain and lightheadedness Gastrointestinal: Admits abdominal pain with contractions. Denies nausea, vomiting. Genitourinary: Denies dysuria and incontinence. Endorses leakage of fluid Musculoskeletal: Denies shoulder pain and back pain Neurological: Denies change in speech or headaches Meds Home Medications and Allergies Home Medications ?Medication ?Instructions ?Recorded ?Confirmed ?Type vits no.126-ferrous fum 1 tab PO .moore 08/09/24 03/14/25 History 28 mg iron-folic acid 800 mcg tablet (Classic ) promethazine 12.5 mg tablet 12.5 mg PO TID PRN nausea and 08/09/24 03/14/25 Rx vomiting #30 tabs ondansetron 4 mg disintegrating 4 mg PO .Q6 #30 tabs 12/22/24 03/14/25 Rx tablet famotidine 20 mg tablet (Pepcid) 20 mg PO BID 02/15/25 03/14/25 History New Prescriptions to Start Prescriptions: Allergies Allergy/AdvReac Type Severity Reaction Status Date / Time No Known Allergies Allergy Verified 03/14/25 20:08 Exam Data for Last 24 hours Vital signs and Labs for Last 24 Hours: Temp Resp BP Pulse Ox O2 Del Method 98.0 F 20 134/76 100 Room Air 03/14/25 18:10 03/14/25 18:10 03/14/25 18:10 03/14/25 18:10 03/14/25 18:10 Laboratory Results - last 24 hr 03/14/25 18:10: Urine Color Yellow, Urine Appearance Clear, Urine pH 7.0, Ur Specific [place] <= 1.005, Urine Protein Trace, Urine Glucose (UA) Negative, Urine Ketones Negative, Urine Blood Negative, Urine Nitrate Negative, Urine Bilirubin Negative, Urine Urobilinogen 0.2, Ur Leukocyte Esterase Negative, Urine RBC None, Urine WBC Occasional, Ur Squamous Epith Cells Occasional, Urine Bacteria Trace, Membrane Rupture Positive A 03/14/25 20:04: WBC 9.3, RBC 3.85 L, Hgb 12.0 L, Hct 37.0, MCV 96.1, MCH 31.2, MCHC 32.4, RDW 12.8, Plt Count 288, MPV 12.6 H, Neut % (Auto) 68.4, Lymph % (Auto) 21.1, [place] % (Auto) 8.7, Eos % (Auto) 1.0, Baso % (Auto) 0.3, Neut # (Auto) 6.3, Lymph # (Auto) 2.0, [place] # (Auto) 0.8, Eos # (Auto) 0.1, Baso # (Auto) 0.0, Blood Type O Positive, Antibody Screen Negative I & O for Last 24 hours: Intake & Output 03/12/25 03/13/25 03/14/25 03/15/25 23:59 23:59 23:59 23:59 Weight 224 lb Narrative: General: patient is alert oriented in no acute distress and responds appropriately to questions. HEENT: NCAT, EOMI, moist mucous membranes, neck supple with full ROM Cardiovascular: RRR +S1/S2, no murmurs or rubs Pulmonary: Clear to auscultation bilaterally, nonlabored breathing, symmetric chest rise Abdominal: Gravid abdomen appropriate for gestation. No guarding, rebound, or tenderness noted. Abdominal pain with contractions Extremities: trace edema, no tenderness or cyanosis noted Skin: Normal turgor, intact, warm. Negative for erythema, pallor, petechia, or lesions Neurologic: Negative for sensory or motor deficit Psychiatric: Normal affect, normal thought process, good judgment and insight, no depression or anxious mood appreciated. *Routine HEENT Exam Head: Present normocephalic and atraumatic Eye: Present EOMI, PERRL and normal accommodation; Absent conjunctival icterus, scleral injection, nystagmus or exophthalmos ENT: Present mucous membranes moist *Routine Respiratory Exam Respiratory: Present CTA bilaterally, normal respiratory effort, able to speak in complete sentences and symmetric chest movement; Absent accessory muscle use, decreased breath sounds, rales, respiratory distress, wheezes, distant breath sounds or diminished air movement *Routine Cardiovascular Exam Cardiovascular: Present RRR, Normal S1 and Normal S2; Absent murmur or gallop *Routine Abdominal Exam Abdominal: Present soft and normoactive bowel sounds; Absent tenderness, distended, rebound or guarding *Routine Rectal Exam Rectal:: deferred *Routine Genitalia Exam Genitalia:: normal female Assessment and Plan *Assessment and plan (1) Active labor at term: Status: Acute Category: Medical Plan - Monitor vitals - Admit to L&D for labor monitoring and delivery - External FHR and TOCO monitor - Exam on admission: /-2 - GBS neg/ Blood type: O+ - Hemoglobin: 12.0, Plt: 288 - Anticipate vaginal delivery of infant: SURPRISE GENDER
[2025-03-15] MEDS: LACTATED RINGERS 1000ML 1,000 ML 500 ML IV ×2 (03:15→04:02)
--- NOTE | 2025-03-15 04:27 | P.PNANES_ITS ---
[facility] Disclaimer: The information contained in this section may have been updated after the patient was seen, as this information can be updated by other users. Medical History History of one miscarriage Nausea/vomiting in Tachycardia Palpitations Surgical History History of tonsillectomy and adenoidectomy History of surgery on left wrist Hx of wisdom tooth extraction Family History Other Coronary artery disease Diabetes Heart attack Kidney disease Social History (Updated 03/14/25 @ 20:10 by Karen Finch RN) Smoking Status: Never smoker alcohol intake: former substance use type: denies use current occupational status: employed Travel in the last 8 weeks?: None household members: spouse housing: house caffeine: No Have you lived/traveled outside [place] in past 30 days?: No Contact w/someone who lives/traveled outside US past 30 days?: No Exposure to someone with infectious disease in past 14 days?: No Do you have a fever (greater than 100.4 F or 38 C)?: No Have you tested positive for COVID-19?: No Exposed to someone with COVID-19 in past 14 days?: No Do you have a sore throat?: No Do you have a cough?: No Do you have any weakness?: No Are you experiencing any nausea/vomitting?: No Do you have any diarrhea?: No Are you experiencing any unusual bleeding?: No Do you have any muscle aches/pain?: No Do you have any abdominal pain?: No Are you experiencing loss of taste or smell?: No [facility] Anesthesia Checklist Patient Identification Patient Identification: Arm Band and Family Structural Data Admitted From: Inpatient Planned Operative Procedure/s: Labor Epidural. Consent for Planned Operative Procedure(s) Verified: Yes Verified Documents: Surgical Consent and History and Physical NPO Status Verified Time NPO: 00:00 Additional verifications Patient : Yes Anesthesia Reactions: No Hx Blood Transfusions: No Blood Transfusion Reaction: No Cephalosporin Allergy: No Previous Colonoscopy: No Airway Assessment Mallampati Score:: Class I C-Spine Mobility Assessed: Yes TMJ Mobility Assessed: Yes Dentition: Good Dentition Neurological Assessment Level of Consciousness: Awake, Alert, Appropriate and Follows Commands Hx Seizures: No Numbness or tingling in extremities: No Anesthesia Plan Anesthesia Risk discussed: Yes ASA Class: I Anesthesia Type: Epidural Preoperative Comments Pre-Operative Comments: Remote history of tachycardia and palpitations.
[2025-03-15] MEDS: ONDANSETRON 4MG/2ML VIAL 4 MG IV (05:53)
[2025-03-15] MEDS: DEXTROSE 5%-LACTATED RINGERS 1,000 ML 125 ML IV (06:22)
[2025-03-15] MEDS: OXYTOCIN/RINGERS LACTATE 30 UNITS/500 ML BAG IV (06:22)
--- NOTE | 2025-03-15 08:46 | P.CONPHA_ITS ---
Pharmacy Intervention Comments: MEDICATION RECONCILIATION COMPLETED ON PATIENT USING EXTERNAL FILL HISTORY FROM PHARMACY AND LIST FROM LATHE HAND OFFICE. -NAHUN BLOODD
--- NOTE | 2025-03-15 08:46 | HMH.PHAINT1 ---
Pharmacy Intervention Comments: MEDICATION RECONCILIATION COMPLETED ON PATIENT USING EXTERNAL FILL HISTORY FROM PHARMACY AND LIST FROM COMPLIANCE PROJECT MANAGER OFFICE. -NAHUN BLOODD
[2025-03-15 09:53] LABS: RPR W/RFX Titers Nonreactive (Nonreactive)
[2025-03-15] MEDS: OXYTOCIN/RINGERS LACTATE 30 UNITS/500 ML BAG 40 UNITS IV (10:57)
[2025-03-15] MEDS: OXYTOCIN/RINGERS LACTATE 30 UNITS/500 ML BAG 999 UNITS IV (11:12)
--- NOTE | 2025-03-15 11:26 | EXP.DN ---
Delivery Note Delivery Date:: 03/15/25 Delivery Time:: 10:52 Anesthesia Type: Epidural Was labor medically induced?: No Induction method: none Gestational age (weeks): 40 Infant delivered prior to 39 weeks?: No Justification for early elective delivery:: Active Labor Gender: Female at 1 minute: 8 at 5 minutes: 9 Delivery Procedure:: Mom complete with epidural. Pushed for approximately 37 minutes. Head delivered spontaneously over intact perineum in ROP position. Nuchal cord x 1 easily reduced. Anterior shoulder delivered with gentle downward pressure. Posterior shoulder and remainder of body delivered spontaneously. Baby placed on maternal abdomen, mouth and nares bulb suctioned, warmed/dried and stimulated. Delayed cord clamping was performed for 120 seconds. Cord was clamped and cut by father of baby. Cord blood was obtained. Placenta delivered spontaneously and intact. First degree perineal laceration and right labial laceration repaired with 3-0 Vicryl. Hemostasis noted. Mom and baby were skin to skin and doing well after delivery. Live female baby (baby's name is Ann) APGARs 8 (1 min), 9 (5 min) EBL 150 mL Laceration:: labial Placental Delivery Description: Spontaneous
[2025-03-15] MEDS: ACETAMINOPHEN 500MG TAB 1000 MG PO ×3 (11:51→23:57)
[2025-03-15] MEDS: IBUPROFEN 400 MG TABLET 800 MG PO ×2 (11:51→20:18)
[2025-03-15] MEDS: PRENATAL MULTIVITAMIN W/IRON 1 EACH PO (17:59)
[2025-03-15 20:18] VITALS: BP 120/70; PULSE 83; RESP 16; TEMP 36.7; O2SAT 99
[2025-03-15] MEDS: SENNA 8.6MG TABLET 8.6 MG PO (20:18)
[2025-03-16 04:23] VITALS: BP 127/71; PULSE 75; RESP 17; TEMP 36.8; O2SAT 98
[2025-03-16] MEDS: IBUPROFEN 400 MG TABLET 800 MG PO (04:25)
[2025-03-16 06:17] LABS: Basophils % 0.3 % (0.1-2.0); Eosinophils # 0.1 Kmm3 (0.0-0.4); Hematocrit 34.8 % (37.0-47.0); Hemoglobin 11.6 g/dL (12.2-16.2); Immature Granulocytes # 0.06 10^3uL; Immature Granulocytes % 0.7 %; Lymphocytes # 2.4 K/mm3 (0.7-4.5); Lymphocytes % 26.6 % (10-50); Mean Corpuscular HGB Conc 33.3 g/dL (31.8-35.4); Mean Corpuscular Hemoglobin 32.2 pg (27.0-31.2); Mean Corpuscular Volume 96.7 fl (81-99); Mean Platelet Volume 12.7 fl (7.4-10.4); Monocytes # 0.8 K/mm3 (0.1-1.0); Monocytes % 8.9 % (1.7-9.3); Neutrophils # 5.6 K/mm3 (1.8-7.8); Neutrophils % 62.5 % (37.0-80.0); Nucleated Red Blood Cells # 0 10^3/uL; Nucleated Red Blood Cells % 0 %; Platelet Count 246 K/mm3 (142-424); Red Cell Distribution Width 12.9 % (11.5-17.5); Red Cell Distribution Width-SD 44.9 fL; White Blood Count 8.9 K/mm3 (4.8-10.8)
[2025-03-16 08:10] VITALS: BP 127/78; PULSE 93; RESP 18; TEMP 36.6; O2SAT 97
[2025-03-16] MEDS: ACETAMINOPHEN 500MG TAB 1000 MG PO (08:46)
--- NOTE | 2025-03-16 09:33 | P.DS_ITS ---
General Admission date:: 03/14/25 Discharge date: 03/16/25 HPI HPI HPI: PPD # 1 s/p Feeling well. Pain controlled. Breast feeding. Lochia is appropriate. Voiding without difficulty and passing flatus. Tolerating regular diet. Denies fever/chills, chest pain and shortness of breath. No headaches, vision changes, lightheadedness/dizziness. She admits to mild lower extremity swelling. No calf pain. Ambulating well ad enedelia. Hospital Course Hospital Course Hospital Course: Mrs Vickie Treviño is a 30-year-old at 40 weeks and 3 days who presented to labor and delivery with regular painful contractions and SROM, clear fluid. Amnisure positive. Her has been uncomplicated. She had a normal spontaneous vaginal delivery on 03/15/25 at 1052. She delivered a live female baby, Ann, weighing 9 lb 0 oz. APGARs 8 (1 min), 9 (5 min). EBL 150 mL. She did well . Pain controlled. Breast feeding. Lochia appropriate. Voiding without difficulty and passing flatus. Tolerating regular diet. Denies fever/chills, chest pain and shortness of breath. No headaches, dizziness/lightheadedness or vision changes. Vital signs stable, afebrile. Heart regular rate and rhythm. Lungs clear to auscultation. Abdomen soft, nontender. No lower extremity swelling. Ambulating well ad enedelia. Normal hospital course. She was discharged to home on PPD # 1 with instructions to follow-up in the office in 2 weeks or sooner if needed. Exam Data for Last 24 hours Vital signs and Labs for Last 24 Hours: Temp Pulse Resp BP Pulse Ox O2 Del Method 97.9 F 93 H 18 127/78 97 Room Air 03/16/25 08:10 03/16/25 08:10 03/16/25 08:10 03/16/25 08:10 03/16/25 08:10 03/16/25 08:10 Laboratory Results - last 24 hr 03/14/25 20:04: RPR w/Rflx to Titer Nonreactive 03/16/25 05:25: WBC 8.9, RBC 3.60 L, Hgb 11.6 L, Hct 34.8 L, MCV 96.7, MCH 32.2 H, MCHC 33.3, RDW 12.9, Plt Count 246, MPV 12.7 H, Neut % (Auto) 62.5, Lymph % (Auto) 26.6, [place] % (Auto) 8.9, Eos % (Auto) 1.0, Baso % (Auto) 0.3, Neut # (Auto) 5.6, Lymph # (Auto) 2.4, [place] # (Auto) 0.8, Eos # (Auto) 0.1, Baso # (Auto) 0.0 I & O for Last 24 hours: Intake & Output 03/13/25 03/14/25 03/15/25 03/16/25 23:59 23:59 23:59 23:59 Weight 224 lb Constitutional Constitutional: no acute distress and cooperative *Routine HEENT Exam Head: Present normocephalic and atraumatic Eye: Absent conjunctivae pink ENT: Present mucous membranes moist *Routine Neck Exam Neck: Present full ROM *Routine Respiratory Exam Respiratory: Present CTA bilaterally and normal respiratory effort *Routine Cardiovascular Exam Cardiovascular: Present RRR *Routine Abdominal Exam Abdominal: Present soft; Absent tenderness or distended Comments: Uterine fundus firm and below umbilicus *Routine Rectal Exam Patient deferred: visual exam *Routine Exam Patient deferred: external exam *Routine Extremities Exam Extremities: Present edema (+1 bilateral lower extremity edema) and full ROM; Absent calf tenderness *Routine Neurological Exam Neurological: Present alert, moving all extremities and normal speech Routine Psychiatric Exam Psychiatric: Present normal affect and cooperative Results Data Completed and Pending Labs on day of discharge: Labs from last 24 hours 03/16/25 03/14/25 05:25 20:04 WBC 8.9 RBC 3.60 L Hgb 11.6 L Hct 34.8 L MCV 96.7 MCH 32.2 H MCHC 33.3 RDW 12.9 Plt Count 246 MPV 12.7 H Neut % (Auto) 62.5 Lymph % (Auto) 26.6 [place] % (Auto) 8.9 Eos % (Auto) 1.0 Baso % (Auto) 0.3 Neut # (Auto) 5.6 Lymph # (Auto) 2.4 [place] # (Auto) 0.8 Eos # (Auto) 0.1 Baso # (Auto) 0.0 RPR w/Rflx to Titer Nonreactive DS: Diagnosis Discharge Diagnosis (1) Status post normal vaginal delivery: Status: Acute (2) Active labor at term: Status: Acute Meds Home Medications and Allergies Home Medications ?Medication ?Instructions ?Recorded ?Confirmed ?Type vits no.126-ferrous fum 1 tab PO DAILY 08/09/24 03/15/25 History 28 mg iron-folic acid 800 mcg tablet (Classic ) ondansetron 4 mg disintegrating 4 mg PO Q6HP PRN Nausea And 03/15/25 03/15/25 History tablet Vomiting promethazine 12.5 mg tablet 12.5 mg PO TIDP PRN nausea and 03/15/25 03/15/25 History vomiting ibuprofen 800 mg tablet 800 mg PO Q8H PRN pain #20 tabs 03/16/25 Rx New Prescriptions to Start Prescriptions: Ana Hernandez Allergies Allergy/AdvReac Type Severity Reaction Status Date / Time No Known Allergies Allergy Verified 03/14/25 20:08 Discharge Plan Disposition Patient Disposition: Home, Self-Care Condition: Good Discharge Order Discharge Orders: Discharge Order (Routine); Ordered 03/16/25 Ordered By: Ana Rothman Follow up Plan Follow up with: Ana Rothman DO [Staff Physician] - 03/30/25 11:15 am Prescriptions/Medication Reconciliation: New ibuprofen 800 mg tablet 800 mg PO Q8H PRN (Reason: pain) Qty: 20 0RF Continued Classic 28 mg iron- 800 mcg tablet 1 tab PO DAILY promethazine 12.5 mg tablet 12.5 mg PO TIDP PRN (Reason: nausea and vomiting) ondansetron 4 mg tablet,disintegrating 4 mg PO Q6HP PRN (Reason: Nausea And Vomiting) Discontinued famotidine [Pepcid] 20 mg tablet 20 mg PO BID Problem Reconciliation Problems Reviewed?: Yes Patient Discharge Instructions ACTIVITY: Limited activity DIET: continue same diet and regular diet Additional Instructions: Congratulations!! Discharge: 1. Take 800 mg Ibuprofen every 8 hours as needed for pain. You can also take 500-1000 mg of Tylenol in between doses, every 6-8 hours. 2. Nothing in the vagina for 6 weeks - no intercourse, douching or tampons. No tub baths/hot tubs or swimming pools 3. Reasons to return to L&D or call On-Call doctor - fever (greater than 100.4) - heavy vaginal bleeding (soaking through 1 pad in less than 2 hours) - vaginal discharge (malodorous and/or purulent) - severe headaches not resolved by medication or rest 4. depression/blues - Normal to feel anxious/overwhelmed for first 2 weeks - Talk to your doctor if: severe anxiety, trouble bonding with baby, withdrawing from other family members, thoughts of harming yourself or others Ana Rothman DO [facility] [phone] Patient Instructions: Depression, Hemorrhage, DI for Labor and Delivery, Vaginal , DI for Pre-eclampsia, [facility] Post Discharge Instructions Print Language: Faroese Providers Primary Care Provider: Mo Escalante Admit Provider: Jojo Ward Attending Provider: Ana Rothman
== END 2025-03-16 12:00 | disposition home or self-care (01) | DRG 807 ==
PROVIDERS: Admitting Provider Obstetrics & Gynecology; PCP Internal Medicine Adolescent Medicine; Visit Provider Obstetrics & Gynecology
DX: O69.81X0 Labor and delivery complicated by cord around neck, without compression, not applicable or unspecified (principal); Z37.0 Single live birth; O70.0 First degree perineal laceration during delivery; Z3A.40 40 weeks gestation of pregnancy
CPT/HCPCS: 59025; 81001; 84112; 85025; 86592; 86850; 94761; G0283; J2405; J7120